=== PATIENT | male | born 1960 | race Caucasian/White ===

== ENCOUNTER 2019-01-20 15:20 | Inpatient (IN) | payer MEDICARE ==
[~2019-01-20] VITALS: Ht 190.5 cm; Wt 86.2 kg
--- OUTSIDE RECORDS SUMMARY | 2019-01-20 15:25 | XMS REPORT ---
Author Author [facility] Address Unknown Phone Unavailable Care Team Providers [employer] Salesperson Name Role Phone Unavailable Unavailable Payers Payer Name Policy Type Policy Number Effective Date Expiration Date Problems This patient has no known problems. Allergies, Adverse Reactions, Alerts Allergy Name Allergy Type Status Severity Reaction(s) Onset Date Inactive Date Treating Clinician Comments No Known Allergies DA Active U 2019-01-15 00:00:00 No Known Allergies DA Active U 2018-12-29 00:00:00 No Known Allergies DA Active U 2018-12-10 00:00:00 No Known Allergies DA Active U 2018-12-09 00:00:00 No Known Allergies DA Active U 2015-08-24 00:00:00 Medications This patient has no known medications. Results Test Description Test Time Test Comments Text Results Atomic Results Result Comments GLUBED 2019-01-17 20:46:00 GLUBED (test code=GLUBED) 138 mg/dL 74-106 Performed by certified quick print operator at [facility] [id number] 08:44:00* Test Item Value Reference Range Comments GLUBED (test code=GLUBED) 118 mg/dL 74-106 Performed [facility] certified quick print operator [facility]~ VANCOMYCIN [id number] 06:29:00* Test Item Value Reference Range Comments VANCOMYCIN TROUGH (test code=VANCT) 11.4 ug/mL 10-20 BASIC METABOLIC [id number] 06:20:00* Test Item Value Reference Range Comments SODIUM (test code=NA) 137 mmol/L 136-145 POTASSIUM (test code=K) 4.0 mmol/L 3.5-5.1 CHLORIDE (test code=CL) 106.0 mmol/L 98-107 CARBON DIOXIDE (test code=CO2) 24.0 mmol/L 21-32 ANION GAP (test code=GAP) 11.0 10-20 GLUCOSE (test code=GLU) 81 mg/dL 74-106 BLOOD UREA NITROGEN (test code=BUN) 6 mg/dL 7-18 GLOMERULAR FILTRATION RATE (test code=GFR) > 60 mL/min >=60 Estimated GFR by using Modified MDRD formula.Chronic kidney disease is defined as either kidney damageor GFR <60 mL/min/1.73 m2 for >3 months. CREATININE (test code=CREAT) 0.40 mg/dL 0.7-1.3 BUN/CREATININE RATIO (test code=BUN/CREA) 15.0 10-20 CALCIUM (test code=CA) 7.9 mg/dL 8.5-10.1 BASIC METABOLIC [id number] 06:17:00* Test Item Value Reference Range Comments SODIUM (test code=NA) 137 mmol/L 136-145 POTASSIUM (test code=K) 4.0 mmol/L 3.5-5.1 CHLORIDE (test code=CL) 106.0 mmol/L 98-107 CARBON DIOXIDE (test code=CO2) mmol/L 21-32 ANION GAP (test code=GAP) 10-20 GLUCOSE (test code=GLU) mg/dL 74-106 BLOOD UREA NITROGEN (test code=BUN) mg/dL 7-18 GLOMERULAR FILTRATION RATE (test code=GFR) mL/min >=60 CREATININE (test code=CREAT) mg/dL 0.7-1.3 BUN/CREATININE RATIO (test code=BUN/CREA) 10-20 CALCIUM (test code=CA) mg/dL 8.5-10.1 CBC W/AUTO [id number] 06:08:00* Test Item Value Reference Range Comments WHITE BLOOD CELL (test code=WBC) 8.0 K/mm3 4.5-12.5 RED BLOOD CELL (test code=RBC) 3.71 mill/mm3 4.0-5.8 HEMOGLOBIN (test code=HGB) 11.0 gram/dL 13.0-17.5 HEMATOCRIT (test code=HCT) 32.9 % 42.0-52.0 MEAN CELL VOLUME (test code=MCV) 88.7 fL 80-98 MEAN CELL HGB (test code=MCH) 29.6 picogram 27.0-33.0 MEAN CELL HGB CONCETRATION (test code=MCHC) 33.4 gram/dL 33.0-36.0 RED CELL DISTRIBUTION WIDTH (test code=RDW) 16.6 % 11.6-16.2 RED CELL DISTRIBUTION WIDTH SD (test code=RDW-SD) 54.0 fL 37.0-51.0 PLATELET COUNT (test code=PLT) 353 K/mm3 150-450 MEAN PLATELET VOLUME (test code=MPV) 9.1 fL 6.7-11.0 NEUTROPHIL % (test code=NT%) 77.3 % 39.0-69.0 IMMATURE GRANULOCYTE % (test code=IG%) 0.4 % 0.0-5.0 LYMPHOCYTE % (test code=LY%) 17.7 % 25.0-55.0 MONOCYTE % (test code=MO%) 2.7 % 0.0-10.0 EOSINOPHIL % (test code=EO%) 1.4 % 0.0-5.0 BASOPHIL % (test code=BA%) 0.5 % 0.0-1.0 NUCLEATED RBC % (test code=NRBC%) 0.0 % 0-0 NEUTROPHIL # (test code=NT#) 6.21 K/mm3 1.8-7.7 IMMATURE GRANULOCYTE # (test code=IG#) 0.03 x10 3/uL 0-0.03 LYMPHOCYTE # (test code=LY#) 1.42 K/mm3 1.0-5.0 MONOCYTE # (test code=MO#) 0.22 K/mm3 0-0.8 EOSINOPHIL # (test code=EO#) 0.11 K/mm3 0.0-0.5 BASOPHIL # (test code=BA#) 0.04 K/mm3 0.0-0.2 NUCLEATED RBC # (test code=NRBC#) 0.00 K/mm3 0.0-0.1 MANUAL DIFF REQUIRED (test code=MDIFF) NO [id number] 20:28:00* Test Item Value Reference Range Comments GLUBED (test code=GLUBED) 105 mg/dL 74-106 Performed by certified quick print operator at [facility] [id number] 16:27:00* Test Item Value Reference Range Comments GLUBED (test code=GLUBED) 110 mg/dL 74-106 Performed by certified quick print operator at [facility] [id number] 11:51:00* Test Item Value Reference Range Comments GLUBED (test code=GLUBED) 112 mg/dL 74-106 Performed by certified quick print operator at [facility] [id number] 08:37:00* Test Item Value Reference Range Comments GLUBED (test code=GLUBED) 104 mg/dL 74-106 Performed by certified quick print operator at [facility] [id number] 21:03:00* Test Item Value Reference Range Comments GLUBED (test code=GLUBED) 103 mg/dL 74-106 Performed by certified quick print operator at [facility] [id number] 18:28:00* Test Item Value Reference Range Comments GLUBED (test code=GLUBED) 170 mg/dL 74-106 Performed by certified quick print operator at [facility] DRUGS OF ABUSE SCREEN [id number] 14:43:00* Test Item Value Reference Range Comments UA PH DIPSTICK (test code=PATRICE) 5.5 5.0-8.0 URN COCAINE (test code=COCAURN) NEGATIVE <300 ng/mL URN CANNABINOIDS (test code=CANNABURN) NEGATIVE <50 ng/mL URN AMPHETAMINE (test code=AMPHETURN) NEGATIVE <1000 ng/mL URN BARBITURATE (test code=BARBITURN) NEGATIVE <200 ng/mL URN BENZODIAZEPINE (test code=BENZOURN) NEGATIVE <200 ng/mL URN OPIATES (test code=OPIATURN) NEGATIVE <300 ng/mL URN PHENCYCLIDINE (PCP) (test code=PHENCURN) NEGATIVE <25 ng/mL URN METHADONE (test code=METHAURN) NEGATIVE <300 ng/mL DRUGS OF ABUSE SCREEN [id number] 14:31:00* Test Item Value Reference Range Comments UA PH DIPSTICK (test code=PATRICE) 5.5 5.0-8.0 URN COCAINE (test code=COCAURN) <300 ng/mL URN CANNABINOIDS (test code=CANNABURN) <50 ng/mL URN AMPHETAMINE (test code=AMPHETURN) <1000 ng/mL URN BARBITURATE (test code=BARBITURN) <200 ng/mL URN BENZODIAZEPINE (test code=BENZOURN) <200 ng/mL URN OPIATES (test code=OPIATURN) <300 ng/mL URN PHENCYCLIDINE (PCP) (test code=PHENCURN) <25 ng/mL URN METHADONE (test code=METHAURN) <300 ng/mL [id number] 11:51:00* Test Item Value Reference Range Comments GLUBED (test code=GLUBED) 93 mg/dL 74-106 Performed by certified quick print operator at [facility] PROCALCITONIN (PCT)2019-01-15 09:50:00* Test Item Value Reference Range Comments PROCALCITONIN (PCT) (test code=PROCAL) 46.77 ng/ml Concentration Interpretation (ng/mL) <0.51 Sepsis is not likely. Local bacterial infection is possible. (LOW RISK for progression to Sepsis) 0.51 - 2.00 Sepsis is possible, but other conditions are known to elevate PCT as well. (MODERATE RISK for progression to Sepsis) > 2.00 Sepsis is likely, unless other causes are known. (HIGH RISK for progression to Severe Sepsis or Septic Shock) 10.00 High likelihood of Severe Sepsis or Septic or higher Shock. *Increased PCT levels may not always be related to systemic bacterial infection.*Low PCT levels do not automatically exclude the presence of bacterial infection.*All results should be interpreted taking into account the patients history. PROTHROMBIN [id number] 09:40:00* Test Item Value Reference Range Comments PROTHROMBIN TIME PATIENT (test code=PTP) 22.1 seconds 9.0-14.0 INTERNATIONAL NORMAL RATIO (test code=INR) 1.9 0.8-1.2 The therapeutic range for oral anticoagulant therapy formost indications is an international normalized ratio (INR)of between 2.0 and 3.0. The recommended therapeutic INRrange for various clinical situations is listed below: Clinical Situation INR range Pulmonary e mbolism treatment (2.0-3.0)Venous thrombosis treatmentVenous thrombosis prophylaxis (high risk surgery)Prevention of systemic embolism from: Acute myocardial infarction Valvular heart disease Atrial fibrillation Mechanical prosthetic heart valves (2.5-3.5) IS PATIENT ON ANTICOAGULANTS? NTHROMBOPLASTIN TIME [id number] 09:40:00* Test Item Value Reference Range Comments THROMBOPLASTIN TIME PARTIAL (test code=PTT) 34.0 seconds 25.0-36.5 IS PATIENT ON ANTICOAGULANTS? NURINALYSIS [id number] 09:38:00* Test Item Value Reference Range Comments UA COLOR (test code=COLU) YELLOW YELLOW UA APPEARANCE (test code=APPU) CLEAR CLEAR UA GLUCOSE DIPSTICK (test code=DGLUU) NEGATIVE mg/dL NEGATIVE UA BILIRUBIN DIPSTICK (test code=BILU) 0.5 (1+) mg/dL NEGATIVE UA KETONE DIPSTICK (test code=KETU) 20 (1+) mg/dL NEGATIVE UA SPECIFIC GRAVITY (test code=SGU) 1.045 1.001-1.035 UA BLOOD DIPSTICK (test code=BEVERLEY) Negative mg/dL NEGATIVE UA PH DIPSTICK (test code=PATRICE) 5.5 5.0-8.0 UA PROTEIN DIPSTICK (test code=PROU) 20 (Trace) mg/dL NEGATIVE UA UROBILINIOGEN DIPSTICK (test code=URO) Normal mg/dL NEGATIVE UA NITRITE DIPSTICK (test code=LESLIE) NEGATIVE NEGATIVE UA LEUKOCYTE ESTERASE W REFLEX (test code=LEUUR) NEGATIVE Susan/uL NEGATIVE UA WBC (test code=WBCU) 0-5 per HPF 0-5 UA RBC (test code=RBCU) 6-10 #/HPF 0-5 UA EPITHELIAL CELLS (test code=EPIU) Few (2-5/hpf) per HPF FEW UA BACTERIA (test code=BACU) FEW #/HPF NONE UA MUCUS (test code=MUCU) FEW #/LPF FEW Urine Source? Clean CatchCBC W/AUTO [id number] 09:34:00* Test Item Value Reference Range Comments WHITE BLOOD CELL (test code=WBC) 9.0 K/mm3 4.5-12.5 RED BLOOD CELL (test code=RBC) 4.01 mill/mm3 4.0-5.8 HEMOGLOBIN (test code=HGB) 11.8 gram/dL 13.0-17.5 HEMATOCRIT (test code=HCT) 36.2 % 42.0-52.0 MEAN CELL VOLUME (test code=MCV) 90.3 fL 80-98 MEAN CELL HGB (test code=MCH) 29.4 picogram 27.0-33.0 MEAN CELL HGB CONCETRATION (test code=MCHC) 32.6 gram/dL 33.0-36.0 RED CELL DISTRIBUTION WIDTH (test code=RDW) 16.4 % 11.6-16.2 RED CELL DISTRIBUTION WIDTH SD (test code=RDW-SD) 55.2 fL 37.0-51.0 PLATELET COUNT (test code=PLT) 384 K/mm3 150-450 MEAN PLATELET VOLUME (test code=MPV) 8.9 fL 6.7-11.0 NEUTROPHIL % (test code=NT%) 78.5 % 39.0-69.0 IMMATURE GRANULOCYTE % (test code=IG%) 1.1 % 0.0-5.0 LYMPHOCYTE % (test code=LY%) 14.3 % 25.0-55.0 MONOCYTE % (test code=MO%) 5.0 % 0.0-10.0 EOSINOPHIL % (test code=EO%) 0.7 % 0.0-5.0 BASOPHIL % (test code=BA%) 0.4 % 0.0-1.0 NUCLEATED RBC % (test code=NRBC%) 0.0 % 0-0 NEUTROPHIL # (test code=NT#) 7.02 K/mm3 1.8-7.7 IMMATURE GRANULOCYTE # (test code=IG#) 0.10 x10 3/uL 0-0.03 LYMPHOCYTE # (test code=LY#) 1.28 K/mm3 1.0-5.0 MONOCYTE # (test code=MO#) 0.45 K/mm3 0-0.8 EOSINOPHIL # (test code=EO#) 0.06 K/mm3 0.0-0.5 BASOPHIL # (test code=BA#) 0.04 K/mm3 0.0-0.2 NUCLEATED RBC # (test code=NRBC#) 0.00 K/mm3 0.0-0.1 MANUAL DIFF REQUIRED (test code=MDIFF) NO BASIC METABOLIC [id number] 09:33:00* Test Item Value Reference Range Comments SODIUM (test code=NA) 131 mmol/L 136-145 POTASSIUM (test code=K) 4.1 mmol/L 3.5-5.1 CHLORIDE (test code=CL) 98.0 mmol/L 98-107 CARBON DIOXIDE (test code=CO2) 24.0 mmol/L 21-32 ANION GAP (test code=GAP) 13.1 10-20 GLUCOSE (test code=GLU) 92 mg/dL 74-106 BLOOD UREA NITROGEN (test code=BUN) 10 mg/dL 7-18 GLOMERULAR FILTRATION RATE (test code=GFR) > 60 mL/min >=60 Estimated GFR by using Modified MDRD formula.Chronic kidney disease is defined as either kidney damageor GFR <60 mL/min/1.73 m2 for >3 months. CREATININE (test code=CREAT) 0.50 mg/dL 0.7-1.3 BUN/CREATININE RATIO (test code=BUN/CREA) 20.0 10-20 CALCIUM (test code=CA) 8.8 mg/dL 8.5-10.1 HEPATIC FUNCTION [id number] 09:33:00* Test Item Value Reference Range Comments TOTAL PROTEIN (test code=PROT) 6.7 gram/dL 6.4-8.2 ALBUMIN (test code=ALB) 2.9 g/dL 3.4-5.0 GLOBULIN (test code=GLOB) 3.8 gram/dL 2.7-4.2 ALBUMIN/GLOBULIN RATIO (test code=A/G) 0.8 0.75-1.50 BILIRUBIN TOTAL (test code=BILT) 0.80 mg/dL 0.0-1.0 BILIRUBIN DIRECT (test code=BILD) 0.42 mg/dL 0.0-0.20 SGOT/AST (test code=AST) 194 IUnit/L 15-37 SGPT/ALT (test code=ALT) 330 IUnit/L 12-78 ALKALINE PHOSPHATASE TOTAL (test code=ALKP) 133 IUnit/L 45-117 Note change in reference range due to change in reagent. [id number] 09:33:00* Test Item Value Reference Range Comments TROPONIN-I (test code=TROPI) <0.015 ng/mL 0-0.045 LACTIC [id number] 09:29:00* Test Item Value Reference Range Comments LACTIC ACID (test code=LACT) 1.0 mmol/L 0.4-1.9 URINALYSIS [id number] 09:27:00* Test Item Value Reference Range Comments UA COLOR (test code=COLU) YELLOW YELLOW UA APPEARANCE (test code=APPU) CLEAR CLEAR UA GLUCOSE DIPSTICK (test code=DGLUU) NEGATIVE mg/dL NEGATIVE UA BILIRUBIN DIPSTICK (test code=BILU) 0.5 (1+) mg/dL NEGATIVE UA KETONE DIPSTICK (test code=KETU) 20 (1+) mg/dL NEGATIVE UA SPECIFIC GRAVITY (test code=SGU) 1.045 1.001-1.035 UA BLOOD DIPSTICK (test code=BEVERLEY) Negative mg/dL NEGATIVE UA PH DIPSTICK (test code=PATRICE) 5.5 5.0-8.0 UA PROTEIN DIPSTICK (test code=PROU) 20 (Trace) mg/dL NEGATIVE UA UROBILINIOGEN DIPSTICK (test code=URO) Normal mg/dL NEGATIVE UA NITRITE DIPSTICK (test code=LESLIE) NEGATIVE NEGATIVE UA LEUKOCYTE ESTERASE W REFLEX (test code=LEUUR) NEGATIVE Susan/uL NEGATIVE UA WBC (test code=WBCU) per HPF 0-5 UA RBC (test code=RBCU) per HPF 0-5 UA EPITHELIAL CELLS (test code=EPIU) per HPF Few UA BACTERIA (test code=BACU) per HPF NONE Urine Source? Clean CatchBASIC METABOLIC [id number] 09:23:00* Test Item Value Reference Range Comments SODIUM (test code=NA) 131 mmol/L 136-145 POTASSIUM (test code=K) 4.1 mmol/L 3.5-5.1 CHLORIDE (test code=CL) 98.0 mmol/L 98-107 CARBON DIOXIDE (test code=CO2) mmol/L 21-32 ANION GAP (test code=GAP) 10-20 GLUCOSE (test code=GLU) mg/dL 74-106 BLOOD UREA NITROGEN (test code=BUN) mg/dL 7-18 GLOMERULAR FILTRATION RATE (test code=GFR) mL/min >=60 CREATININE (test code=CREAT) mg/dL 0.7-1.3 BUN/CREATININE RATIO (test code=BUN/CREA) 10-20 CALCIUM (test code=CA) mg/dL 8.5-10.1 HEPATIC FUNCTION [id number] 09:23:00* Test Item Value Reference Range Comments TOTAL PROTEIN (test code=PROT) gram/dL 6.4-8.2 ALBUMIN (test code=ALB) g/dL 3.4-5.0 GLOBULIN (test code=GLOB) gram/dL 2.7-4.2 ALBUMIN/GLOBULIN RATIO (test code=A/G) 0.75-1.50 BILIRUBIN TOTAL (test code=BILT) mg/dL 0.0-1.0 BILIRUBIN DIRECT (test code=BILD) mg/dL 0.0-0.20 SGOT/AST (test code=AST) IUnit/L 15-37 SGPT/ALT (test code=ALT) IUnit/L 12-78 ALKALINE PHOSPHATASE TOTAL (test code=ALKP) IUnit/L 45-117 [id number] 09:23:00* Test Item Value Reference Range Comments TROPONIN-I (test code=TROPI) ng/mL 0-0.045 POC LACTIC [id number] 09:16:00* Test Item Value Reference Range Comments POC LACTIC ACID (test code=POCLAC) 0.95 MMOL/L 0.4-2.2 - XR FEMUR MIN 2 S [id number] 08:45:00 FAX: Marcy Galloway MD [phone] [place]: [address] St: ADM Name: SHAUNA TABOR [facility] : [birth year] Age/S: 58/M [address] Unit #: [id number] Loc: [place] [address] Phys: Marcy Galloway MD Acct: [id number] Dis Date: Status: ADM IN PHONE #: [phone] Exam Date: 01/15/2019 0807 FAX #: [phone] Reason: pain, infected AKA EXAMS: CPT CODE: [id number] XR FEMUR MIN [address] [place] [address] TECHNIQUE - XR FEMUR MIN 2 VWS RT . COMPARISON: None provided. HISTORY: 58 years Male pain, infected AKA FINDINGS: Right above knee amputation. Stent in the right superficial femoral artery proximally. Postsurgical changes. No fracture. No bony erosive changes. No dislocation. IMPRESSION: Right ab ove knee amputation. Stent in the right superficial femoral artery proxi zachary. Postsurgical changes. No fracture. No bony erosive changes. No di slocation. at 0845 Reported and signed by: Chintan Gonzales M.D. CC: Marcy Galloway MD Technologist: Leslie Ruiz(R); Hallie Buchanan RT(R); ... Trnscrd Date/Time/By: 0 01/15/2019 (0845) : By: [email or web address] Orig Print D/T: S: 01/15/2019 (0848) PAGE 1 Signed Report - XR CHEST 1 [id number] 08:30:00 FAX: Marcy Galloway MD [phone] [place]: [address] St: REG Name: SHAUNA TABOR [facility] : [birth year] 60 Age/S: 58/M [address] Unit #: [id number] Loc: [place] [address] Phys: Marcy Galloway MD Acct: [id number] Dis Date: Status: REG ER PHONE #: [phone] Exam Date: 01/15/2019 0807 FAX #: [phone] Reason: CODE SEPSIS EXAMS: CPT CODE: [id number] XR CHEST 1 V 39051 TECHNIQUE - XR CHEST 1 V . COMPARISON: Chest x-ray 08/28/2015 HISTORY: 58 years Male CODE SEPSIS FINDINGS: Lungs: No nodules. No air space or interstitial lung disease. Lungs are normal in volume. Mediastinum and richmond: No enlargement or other m ass. Cardiovascular structures: No cardiomegaly. No abnormalities in vascular structures. Pleura/CP angles: Clear. No pneum othorax. Bones: Old left rib fractures. Soft tissues : No abnormalities. Tubes and lines: None. Other: N one. IMPRESSION: No acute cardiopulmonary abnormalities. at 0830 Reported and signed by: Chintan Gonzales M.D. CC: Junior Galloway MD Technologist: Leslie Ruiz(R ); Hallie Buchanan RT(R); ... Trnscrd Date/Time/By: 01/15/2019 (0830) : By : [email or web address] Orig Print D/T: S: 01/15/2019 (0520) PAGE 1 Signed Report - XR FEMUR MIN 2 VWS [id number] 15:28:00 FAX: Vj Gupta [phone] [place]: [address] St: REG Name: SHAUNA TABOR [facility] : [birth year] 60 Age/S: 58/M [address] [facility] Unit #: [id number] Loc: [place] [address] Phys: Vj Ayala MD Acct: [id number] Dis Date: Status: REG ER PHONE #: [phone] Exam Date: 12/29/2018 1524 FAX #: [phone] Reason: STUMP PAIN EXAMS: CPT CODE: [id number] XR FEMUR MIN [address] [place] [id number] REASON FOR EXAM: STUMP PAIN EXAM ORDER DATE: 12/29/2018 1:45 PM Ordering MMarshall: Vj Ayala MD PROCEDURE: - XR FEMUR MIN 2 VWS RT FINDINGS: 4 views of the right femur were obtained. The p atient is status post above right knee amputation. The osseous structures are intact without evidence of lytic lesion to suggest osteomyelitis. Surgical arron present within the soft tissue IMPRESSION: Unremarkable right femur Electronically Signed by Nayely Mckenna on at 1528 Reported and signed by: Ang Mckenna M.D. CC: Vj Ayala MD Technologist: Hallie Buchanan RT(R); PAULETTE DENNEY RT(R) Trnscrd Da te/Time/By: 12/29/2018 (1528) : By: MaribelL Orig Print D/T: S: 12/29 (3346) PAGE 1 Signed Report BASIC METABOLIC [id number] 14:57:00* Test Item Value Reference Range Comments SODIUM (test code=NA) 144 mmol/L 136-145 POTASSIUM (test code=K) 4.2 mmol/L 3.5-5.1 CHLORIDE (test code=CL) 112.0 mmol/L 98-107 CARBON DIOXIDE (test code=CO2) 24.0 mmol/L 21-32 ANION GAP (test code=GAP) 12.2 10-20 GLUCOSE (test code=GLU) 80 mg/dL 74-106 BLOOD UREA NITROGEN (test code=BUN) 11 mg/dL 7-18 GLOMERULAR FILTRATION RATE (test code=GFR) > 60 mL/min >=60 Estimated GFR by using Modified MDRD formula.Chronic kidney disease is defined as either kidney damageor GFR <60 mL/min/1.73 m2 for >3 months. CREATININE (test code=CREAT) 0.50 mg/dL 0.7-1.3 BUN/CREATININE RATIO (test code=BUN/CREA) 22.0 10-20 CALCIUM (test code=CA) 9.0 mg/dL 8.5-10.1 BASIC METABOLIC [id number] 14:53:00* Test Item Value Reference Range Comments SODIUM (test code=NA) 144 mmol/L 136-145 POTASSIUM (test code=K) 4.2 mmol/L 3.5-5.1 CHLORIDE (test code=CL) 112.0 mmol/L 98-107 CARBON DIOXIDE (test code=CO2) mmol/L 21-32 ANION GAP (test code=GAP) 10-20 GLUCOSE (test code=GLU) mg/dL 74-106 BLOOD UREA NITROGEN (test code=BUN) mg/dL 7-18 GLOMERULAR FILTRATION RATE (test code=GFR) mL/min >=60 CREATININE (test code=CREAT) mg/dL 0.7-1.3 BUN/CREATININE RATIO (test code=BUN/CREA) 10-20 CALCIUM (test code=CA) 9.0 mg/dL 8.5-10.1 CBC W/AUTO [id number] 14:40:00* Test Item Value Reference Range Comments WHITE BLOOD CELL (test code=WBC) 7.5 K/mm3 4.5-12.5 RED BLOOD CELL (test code=RBC) 3.73 mill/mm3 4.0-5.8 HEMOGLOBIN (test code=HGB) 11.1 gram/dL 13.0-17.5 HEMATOCRIT (test code=HCT) 35.9 % 42.0-52.0 MEAN CELL VOLUME (test code=MCV) 96.2 fL 80-98 MEAN CELL HGB (test code=MCH) 29.8 picogram 27.0-33.0 MEAN CELL HGB CONCETRATION (test code=MCHC) 30.9 gram/dL 33.0-36.0 RED CELL DISTRIBUTION WIDTH (test code=RDW) 18.3 % 11.6-16.2 RED CELL DISTRIBUTION WIDTH SD (test code=RDW-SD) 64.9 fL 37.0-51.0 PLATELET COUNT (test code=PLT) 397 K/mm3 150-450 MEAN PLATELET VOLUME (test code=MPV) 9.1 fL 6.7-11.0 NEUTROPHIL % (test code=NT%) 62.6 % 39.0-69.0 IMMATURE GRANULOCYTE % (test code=IG%) 0.5 % 0.0-5.0 LYMPHOCYTE % (test code=LY%) 29.4 % 25.0-55.0 MONOCYTE % (test code=MO%) 5.3 % 0.0-10.0 EOSINOPHIL % (test code=EO%) 1.3 % 0.0-5.0 BASOPHIL % (test code=BA%) 0.9 % 0.0-1.0 NUCLEATED RBC % (test code=NRBC%) 0.0 % 0-0 NEUTROPHIL # (test code=NT#) 4.71 K/mm3 1.8-7.7 IMMATURE GRANULOCYTE # (test code=IG#) 0.04 x10 3/uL 0-0.03 LYMPHOCYTE # (test code=LY#) 2.22 K/mm3 1.0-5.0 MONOCYTE # (test code=MO#) 0.40 K/mm3 0-0.8 EOSINOPHIL # (test code=EO#) 0.10 K/mm3 0.0-0.5 BASOPHIL # (test code=BA#) 0.07 K/mm3 0.0-0.2 NUCLEATED RBC # (test code=NRBC#) 0.00 K/mm3 0.0-0.1 MANUAL DIFF REQUIRED (test code=MDIFF) NO COMPREHENSIVE METABOLIC [id number] 11:43:00* Test Item Value Reference Range Comments SODIUM (test code=NA) 135 mmol/L 136-145 POTASSIUM (test code=K) 4.5 mmol/L 3.5-5.1 CHLORIDE (test code=CL) 101.0 mmol/L 98-107 CARBON DIOXIDE (test code=CO2) 30.0 mmol/L 21-32 ANION GAP (test code=GAP) 8.5 10-20 GLUCOSE (test code=GLU) 128 mg/dL 74-106 BLOOD UREA NITROGEN (test code=BUN) 14 mg/dL 7-18 GLOMERULAR FILTRATION RATE (test code=GFR) > 60 mL/min >=60 Estimated GFR by using Modified MDRD formula.Chronic kidney disease is defined as either kidney damageor GFR <60 mL/min/1.73 m2 for >3 months. CREATININE (test code=CREAT) 0.60 mg/dL 0.7-1.3 BUN/CREATININE RATIO (test code=BUN/CREA) 23.3 10-20 TOTAL PROTEIN (test code=PROT) 7.2 gram/dL 6.4-8.2 ALBUMIN (test code=ALB) 2.7 g/dL 3.4-5.0 GLOBULIN (test code=GLOB) 4.5 gram/dL 2.7-4.2 ALBUMIN/GLOBULIN RATIO (test code=A/G) 0.6 0.75-1.50 CALCIUM (test code=CA) 9.2 mg/dL 8.5-10.1 BILIRUBIN TOTAL (test code=BILT) 0.20 mg/dL 0.0-1.0 SGOT/AST (test code=AST) 45 IUnit/L 15-37 SGPT/ALT (test code=ALT) 124 IUnit/L 12-78 ALKALINE PHOSPHATASE TOTAL (test code=ALKP) 147 IUnit/L 45-117 Note change in reference range due to change in reagent. COMPREHENSIVE METABOLIC [id number] 11:35:00* Test Item Value Reference Range Comments SODIUM (test code=NA) 135 mmol/L 136-145 POTASSIUM (test code=K) 4.5 mmol/L 3.5-5.1 CHLORIDE (test code=CL) 101.0 mmol/L 98-107 CARBON DIOXIDE (test code=CO2) mmol/L 21-32 ANION GAP (test code=GAP) 10-20 GLUCOSE (test code=GLU) mg/dL 74-106 BLOOD UREA NITROGEN (test code=BUN) mg/dL 7-18 GLOMERULAR FILTRATION RATE (test code=GFR) mL/min >=60 CREATININE (test code=CREAT) mg/dL 0.7-1.3 BUN/CREATININE RATIO (test code=BUN/CREA) 10-20 TOTAL PROTEIN (test code=PROT) gram/dL 6.4-8.2 ALBUMIN (test code=ALB) g/dL 3.4-5.0 GLOBULIN (test code=GLOB) gram/dL 2.7-4.2 ALBUMIN/GLOBULIN RATIO (test code=A/G) 0.75-1.50 CALCIUM (test code=CA) mg/dL 8.5-10.1 BILIRUBIN TOTAL (test code=BILT) mg/dL 0.0-1.0 SGOT/AST (test code=AST) IUnit/L 15-37 SGPT/ALT (test code=ALT) IUnit/L 12-78 ALKALINE PHOSPHATASE TOTAL (test code=ALKP) IUnit/L 45-117 CBC W/AUTO [id number] 10:56:00* Test Item Value Reference Range Comments WHITE BLOOD CELL (test code=WBC) 10.1 K/mm3 4.5-12.5 RED BLOOD CELL (test code=RBC) 3.66 mill/mm3 4.0-5.8 HEMOGLOBIN (test code=HGB) 10.7 gram/dL 13.0-17.5 HEMATOCRIT (test code=HCT) 34.0 % 42.0-52.0 MEAN CELL VOLUME (test code=MCV) 92.9 fL 80-98 MEAN CELL HGB (test code=MCH) 29.2 picogram 27.0-33.0 MEAN CELL HGB CONCETRATION (test code=MCHC) 31.5 gram/dL 33.0-36.0 RED CELL DISTRIBUTION WIDTH (test code=RDW) 17.9 % 11.6-16.2 RED CELL DISTRIBUTION WIDTH SD (test code=RDW-SD) 61.1 fL 37.0-51.0 PLATELET COUNT (test code=PLT) 484 K/mm3 150-450 MEAN PLATELET VOLUME (test code=MPV) 9.0 fL 6.7-11.0 NEUTROPHIL % (test code=NT%) 72.5 % 39.0-69.0 IMMATURE GRANULOCYTE % (test code=IG%) 0.7 % 0.0-5.0 LYMPHOCYTE % (test code=LY%) 15.8 % 25.0-55.0 MONOCYTE % (test code=MO%) 6.5 % 0.0-10.0 EOSINOPHIL % (test code=EO%) 4.1 % 0.0-5.0 BASOPHIL % (test code=BA%) 0.4 % 0.0-1.0 NUCLEATED RBC % (test code=NRBC%) 0.0 % 0-0 NEUTROPHIL # (test code=NT#) 7.35 K/mm3 1.8-7.7 IMMATURE GRANULOCYTE # (test code=IG#) 0.07 x10 3/uL 0-0.03 LYMPHOCYTE # (test code=LY#) 1.60 K/mm3 1.0-5.0 MONOCYTE # (test code=MO#) 0.66 K/mm3 0-0.8 EOSINOPHIL # (test code=EO#) 0.42 K/mm3 0.0-0.5 BASOPHIL # (test code=BA#) 0.04 K/mm3 0.0-0.2 NUCLEATED RBC # (test code=NRBC#) 0.00 K/mm3 0.0-0.1 MANUAL DIFF REQUIRED (test code=MDIFF) NO COMPREHENSIVE METABOLIC [id number] 12:03:00* Test Item Value Reference Range Comments SODIUM (test code=NA) 137 mmol/L 136-145 POTASSIUM (test code=K) 4.2 mmol/L 3.5-5.1 CHLORIDE (test code=CL) 104.0 mmol/L 98-107 CARBON DIOXIDE (test code=CO2) 31.0 mmol/L 21-32 ANION GAP (test code=GAP) 6.2 10-20 GLUCOSE (test code=GLU) 103 mg/dL 74-106 BLOOD UREA NITROGEN (test code=BUN) 8 mg/dL 7-18 GLOMERULAR FILTRATION RATE (test code=GFR) > 60 mL/min >=60 Estimated GFR by using Modified MDRD formula.Chronic kidney disease is defined as either kidney damageor GFR <60 mL/min/1.73 m2 for >3 months. CREATININE (test code=CREAT) 0.50 mg/dL 0.7-1.3 BUN/CREATININE RATIO (test code=BUN/CREA) 16.0 10-20 TOTAL PROTEIN (test code=PROT) 6.4 gram/dL 6.4-8.2 ALBUMIN (test code=ALB) 2.3 g/dL 3.4-5.0 GLOBULIN (test code=GLOB) 4.1 gram/dL 2.7-4.2 ALBUMIN/GLOBULIN RATIO (test code=A/G) 0.6 0.75-1.50 CALCIUM (test code=CA) 8.8 mg/dL 8.5-10.1 BILIRUBIN TOTAL (test code=BILT) 0.20 mg/dL 0.0-1.0 SGOT/AST (test code=AST) 57 IUnit/L 15-37 SGPT/ALT (test code=ALT) 119 IUnit/L 12-78 ALKALINE PHOSPHATASE TOTAL (test code=ALKP) 159 IUnit/L 45-117 Note change in reference range due to change in reagent. CREATINE KINASE (CK)2018-12-17 12:03:00* Test Item Value Reference Range Comments CREATINE KINASE (CK) (test code=CK) 340 IUnit/L 26-208 COMPREHENSIVE METABOLIC [id number] 11:58:00* Test Item Value Reference Range Comments SODIUM (test code=NA) 137 mmol/L 136-145 POTASSIUM (test code=K) 4.2 mmol/L 3.5-5.1 CHLORIDE (test code=CL) 104.0 mmol/L 98-107 CARBON DIOXIDE (test code=CO2) mmol/L 21-32 ANION GAP (test code=GAP) 10-20 GLUCOSE (test code=GLU) mg/dL 74-106 BLOOD UREA NITROGEN (test code=BUN) mg/dL 7-18 GLOMERULAR FILTRATION RATE (test code=GFR) mL/min >=60 CREATININE (test code=CREAT) mg/dL 0.7-1.3 BUN/CREATININE RATIO (test code=BUN/CREA) 10-20 TOTAL PROTEIN (test code=PROT) gram/dL 6.4-8.2 ALBUMIN (test code=ALB) g/dL 3.4-5.0 GLOBULIN (test code=GLOB) gram/dL 2.7-4.2 ALBUMIN/GLOBULIN RATIO (test code=A/G) 0.75-1.50 CALCIUM (test code=CA) mg/dL 8.5-10.1 BILIRUBIN TOTAL (test code=BILT) mg/dL 0.0-1.0 SGOT/AST (test code=AST) IUnit/L 15-37 SGPT/ALT (test code=ALT) IUnit/L 12-78 ALKALINE PHOSPHATASE TOTAL (test code=ALKP) IUnit/L 45-117 CREATINE KINASE (CK)2018-12-17 11:58:00* Test Item Value Reference Range Comments CREATINE KINASE (CK) (test code=CK) IUnit/L 26-208 BASIC METABOLIC [id number] 13:03:00* Test Item Value Reference Range Comments SODIUM (test code=NA) 135 mmol/L 136-145 POTASSIUM (test code=K) 4.0 mmol/L 3.5-5.1 CHLORIDE (test code=CL) 102.0 mmol/L 98-107 CARBON DIOXIDE (test code=CO2) 27.0 mmol/L 21-32 ANION GAP (test code=GAP) 10.0 10-20 GLUCOSE (test code=GLU) 97 mg/dL 74-106 BLOOD UREA NITROGEN (test code=BUN) 8 mg/dL 7-18 GLOMERULAR FILTRATION RATE (test code=GFR) > 60 mL/min >=60 Estimated GFR by using Modified MDRD formula.Chronic kidney disease is defined as either kidney damageor GFR <60 mL/min/1.73 m2 for >3 months. CREATININE (test code=CREAT) 0.60 mg/dL 0.7-1.3 BUN/CREATININE RATIO (test code=BUN/CREA) 13.3 10-20 CALCIUM (test code=CA) 7.9 mg/dL 8.5-10.1 CREATINE KINASE (CK)2018-12-16 13:03:00* Test Item Value Reference Range Comments CREATINE KINASE (CK) (test code=CK) 558 IUnit/L 26-208 [id number] 13:03:00* Test Item Value Reference Range Comments MAGNESIUM (test code=MAG) 2.1 mg/dL 1.8-2.4 - TRC A/V INF THROM [id number] 11:49:00 Name: SHAUNA DUMONT [facility] : 1960 Age/S: 58 / M [address] [facility] Unit #: [id number] Loc: [place] [address] Phys: Fredy Gardner MD Acct: [id number] Dis Date: Status: ADM IN PHONE #: [phone] Exam Date: 12/11/2018 1640 FAX #: [phone] Reason: EXAMS: CPT CODE: [id number] TRC A/V INF THROM SUBS 52771 Fluoro Time: DAP (Gy m2): Air Kerma (mGy): EXAM: Follow-up angiography after thrombolytic therapy with cessation of therapy; INFORMATION: Patient with long history of smoking and right leg ischemia. Presented with a nonviable right foot and underwent angiographic relation, thrombectomy and catheter directed thrombolytic therapy. Clinically, responded to lytic therapy with reperfusion of his thigh, knee and upper half of his calf however, the right foot remained nonviable with purple discoloration and absent motor and sensory function. TECHNIQUE AND FINDINGS: The patient was placed supine on the angiography table and general anesthesia was initiated. The patient's skin in both lungs worse prepped and draped in the usual sterile fashion. Follow-up angiography of the right lower extremity was performed by injecting contrast material into the infusion catheter. The right common and external iliac arteries as well as the right common femoral artery including the stented portions were now widely patent without residual thrombus. The right femoropopliteal bypass graft was also revascularized and without stenosis or residual thrombus. The di stal anastomosis and the popliteal artery were patent. The proximal portions of the tibioperoneal trunk and the anterior tibial artery were op acified but there was no distal runoff consistent with the presence of the reversible distal ischemia. Thrombolytic therapy was discontinued. Low do se heparin infusion was continued and orders were given to remove the vasc ular sheaths in the ICU. No complications. IMPRESSIO N: 1. Thrombectomy and thrombolytic therapy resulted in revascularizatio n of the occluded right iliac arteries as well as of the right f emoropopliteal bypass graft and the right popliteal artery. 2. The proxi mal portions of the right anterior tibial artery and tibioperoneal trunk were also revascularized but there was no distal runoff consistent with the clinical presentation of irreversible distally ischemia. The patient has been evaluated by Dr. Kate, surgery service, for BKA. Fluoroscopy Time: 36 sec CAK : 32.95 mGy DAP : 41396 mGy sq cm PAGE 1 Signed Report (CONTINUED) Name: SHAUNA DUMONT [facility] : 1960 Age/S: 58 / M [address] [facility] Unit #: [id number] Loc: [place] [address] Phys: Fredy Gardner MD Acct: [id number] Dis Date: Status: ADM IN PHONE #: [phone] Exam Date: 12/11/2018 1640 FAX #: [phone] Reason: EXAMS: CPT CODE: [id number] TRC A/V INF THROM SUBS 65701 Fluoro T monica: DAP (Gy m2): Air Kerma (mGy): <Continued> at 1149 Reported and signed by: Fredy Gardner M.D. CC: Asmita Lui MD Technologist: Randolph wheeler Trnscb Date/Time: 12/15/2018 (1447) [email or web address] Orig Print D/T: S: 12/15/2018 (9473) PAGE 2 Signed Report - SP ANGIO EXT UNI [id number] 11:49:00 Name: SHAUNA DUMONT [facility] SP : 1960 Age/S: 58 / M [address] [facility] Unit #: [id number] Loc: [place] [address] Phys: Fredy Gardner MD Acct: [id number] Dis Date: Status: ADM IN PHONE #: [phone] Exam Date: 12/11/2018 1640 FAX #: [phone] Reason: EXAMS: CPT CODE: [id number] [place] [id number] Fluoro Time: 36 DAP (Gy m2): 28242 Air Kerma (mGy): 32.95 EXAM: Follow-up angiography after thrombolytic therapy with cessation of therapy; INFORMATION: Patient with long history of smoking and right leg ischemia. Presented with a nonviable right foot and underwent angiographic relation, thrombectomy and catheter directed thrombolytic therapy. Clinically, responded to lytic therapy with reperfusion of his thigh, knee and upper half of his calf however, the right foot remained nonviable with purple discoloration and absent motor and sensory function. TECHNIQUE AND FINDINGS: The patient was placed supine on the angiography table and general anesthesia was initiated. The patient's skin in both lungs worse prepped and draped in the usual sterile fashion. Follow-up angiography of the right lower extremity was performed by injecting contrast material into the infusion catheter. The right common and external iliac arteries as well as the right common femoral artery including the stented portions were now widely patent without residual thrombus. The right femoropopliteal bypass graft was also revascularized and without stenosis or residual thrombus. The distal anastomosis and the popliteal artery were patent. The proximal portions of the tibioperoneal trunk and the anterior tibial artery were op acified but there was no distal runoff consistent with the presence of the reversible distal ischemia. Thrombolytic therapy was discontinued. Low do se heparin infusion was continued and orders were given to remove the vasc ular sheaths in the ICU. No complications. IMPRESSIO N: 1. Thrombectomy and thrombolytic therapy resulted in revascularizatio n of the occluded right iliac arteries as well as of the right f emoropopliteal bypass graft and the right popliteal artery. 2. The proxi mal portions of the right anterior tibial artery and tibioperoneal trunk were also revascularized but there was no distal runoff consistent with the clinical presentation of irreversible distally ischemia. The patient has been evaluated by Dr. Kate, surgery service, for BKA. Fluoroscopy Time: 36 sec CAK : 32.95 mGy DAP : 35103 mGy sq cm PAGE 1 Signed Report (CONTINUED) Name: SHAUNA DUMONT [facility] : 1960 Age/S: 58 / M [address] [facility] Unit #: [id number] Loc: [place] [address] Phys: Fredy Gardner MD Acct: [id number] Dis Date: Status: ADM IN PHONE #: [phone] Exam Date: 12/11/2018 1640 FAX #: [phone] Reason: EXAMS: CPT CODE: [id number] [place] [id number] Fluoro T monica: 36 DAP (Gy m2): 74992 Air Kerma (mGy): 32.95 <Continued> at 1149 Reported and signed by: Fredy Gardner M.D. CC: Asmita Lui MD Technologist: Randolph wheeler Trnvtb Date/Time: 12/15/2018 (1149) Danilo Orig Print D/T: S: 12/15/2018 (4120) PAGE 2 Signed Report BASIC METABOLIC [id number] 12:38:00* Test Item Value Reference Range Comments SODIUM (test code=NA) 140 mmol/L 136-145 POTASSIUM (test code=K) 3.2 mmol/L 3.5-5.1 CHLORIDE (test code=CL) 107.0 mmol/L 98-107 CARBON DIOXIDE (test code=CO2) 25.0 mmol/L 21-32 ANION GAP (test code=GAP) 11.2 10-20 GLUCOSE (test code=GLU) 138 mg/dL 74-106 BLOOD UREA NITROGEN (test code=BUN) 4 mg/dL 7-18 GLOMERULAR FILTRATION RATE (test code=GFR) > 60 mL/min >=60 Estimated GFR by using Modified MDRD formula.Chronic kidney disease is defined as either kidney damageor GFR <60 mL/min/1.73 m2 for >3 months. CREATININE (test code=CREAT) 0.60 mg/dL 0.7-1.3 BUN/CREATININE RATIO (test code=BUN/CREA) 6.7 10-20 CALCIUM (test code=CA) 8.1 mg/dL 8.5-10.1 [id number] 12:38:00* Test Item Value Reference Range Comments MAGNESIUM (test code=MAG) 1.6 mg/dL 1.8-2.4 CBC W/AUTO [id number] 12:28:00* Test Item Value Reference Range Comments WHITE BLOOD CELL (test code=WBC) 10.0 K/mm3 4.5-12.5 RED BLOOD CELL (test code=RBC) 3.09 mill/mm3 4.0-5.8 HEMOGLOBIN (test code=HGB) 9.4 gram/dL 13.0-17.5 HEMATOCRIT (test code=HCT) 28.1 % 42.0-52.0 MEAN CELL VOLUME (test code=MCV) 90.9 fL 80-98 RESULT VERIFIED BY REPEAT ANALYSIS MEAN CELL HGB (test code=MCH) 30.4 picogram 27.0-33.0 MEAN CELL HGB CONCETRATION (test code=MCHC) 33.5 gram/dL 33.0-36.0 RED CELL DISTRIBUTION WIDTH (test code=RDW) 18.4 % 11.6-16.2 RED CELL DISTRIBUTION WIDTH SD (test code=RDW-SD) 60.4 fL 37.0-51.0 PLATELET COUNT (test code=PLT) 191 K/mm3 150-450 RESULT VERIFIED BY REPEAT ANALYSIS MEAN PLATELET VOLUME (test code=MPV) 10.1 fL 6.7-11.0 NEUTROPHIL % (test code=NT%) 76.1 % 39.0-69.0 IMMATURE GRANULOCYTE % (test code=IG%) 0.3 % 0.0-5.0 LYMPHOCYTE % (test code=LY%) 15.6 % 25.0-55.0 MONOCYTE % (test code=MO%) 7.6 % 0.0-10.0 EOSINOPHIL % (test code=EO%) 0.2 % 0.0-5.0 BASOPHIL % (test code=BA%) 0.2 % 0.0-1.0 NUCLEATED RBC % (test code=NRBC%) 0.0 % 0-0 NEUTROPHIL # (test code=NT#) 7.58 K/mm3 1.8-7.7 IMMATURE GRANULOCYTE # (test code=IG#) 0.03 x10 3/uL 0-0.03 LYMPHOCYTE # (test code=LY#) 1.55 K/mm3 1.0-5.0 MONOCYTE # (test code=MO#) 0.76 K/mm3 0-0.8 EOSINOPHIL # (test code=EO#) 0.02 K/mm3 0.0-0.5 BASOPHIL # (test code=BA#) 0.02 K/mm3 0.0-0.2 NUCLEATED RBC # (test code=NRBC#) 0.00 K/mm3 0.0-0.1 MANUAL DIFF REQUIRED (test code=MDIFF) NO CBC W/AUTO [id number] 08:56:00* Test Item Value Reference Range Comments WHITE BLOOD CELL (test code=WBC) 8.2 K/mm3 4.5-12.5 RED BLOOD CELL (test code=RBC) 3.22 mill/mm3 4.0-5.8 HEMOGLOBIN (test code=HGB) 9.2 gram/dL 13.0-17.5 HEMATOCRIT (test code=HCT) 31.1 % 42.0-52.0 MEAN CELL VOLUME (test code=MCV) 96.6 fL 80-98 MEAN CELL HGB (test code=MCH) 28.6 picogram 27.0-33.0 MEAN CELL HGB CONCETRATION (test code=MCHC) 29.6 gram/dL 33.0-36.0 RED CELL DISTRIBUTION WIDTH (test code=RDW) 18.7 % 11.6-16.2 RED CELL DISTRIBUTION WIDTH SD (test code=RDW-SD) 66.0 fL 37.0-51.0 PLATELET COUNT (test code=PLT) 119 K/mm3 150-450 MEAN PLATELET VOLUME (test code=MPV) 10.8 fL 6.7-11.0 NEUTROPHIL % (test code=NT%) 72.1 % 39.0-69.0 IMMATURE GRANULOCYTE % (test code=IG%) 0.5 % 0.0-5.0 LYMPHOCYTE % (test code=LY%) 19.4 % 25.0-55.0 MONOCYTE % (test code=MO%) 7.0 % 0.0-10.0 EOSINOPHIL % (test code=EO%) 0.9 % 0.0-5.0 BASOPHIL % (test code=BA%) 0.1 % 0.0-1.0 NUCLEATED RBC % (test code=NRBC%) 0.0 % 0-0 NEUTROPHIL # (test code=NT#) 5.89 K/mm3 1.8-7.7 IMMATURE GRANULOCYTE # (test code=IG#) 0.04 x10 3/uL 0-0.03 LYMPHOCYTE # (test code=LY#) 1.58 K/mm3 1.0-5.0 MONOCYTE # (test code=MO#) 0.57 K/mm3 0-0.8 EOSINOPHIL # (test code=EO#) 0.07 K/mm3 0.0-0.5 BASOPHIL # (test code=BA#) 0.01 K/mm3 0.0-0.2 NUCLEATED RBC # (test code=NRBC#) 0.00 K/mm3 0.0-0.1 MANUAL DIFF REQUIRED (test code=MDIFF) NO, ONLY SCAN NEEDED DIFFERENTIAL [id number] 08:56:00* Test Item Value Reference Range Comments STAIN ACCEPTABILITY (test code=STN ACCEPTABLE) STAIN ACCEPTABLE HYPOCHROMIA (test code=HYPO) 1+ POIKILOCYTOSIS (test code=POIK) 1+ ANISOCYTOSIS (test code=ANISO) 1+ CRENATED CELLS (test code=CREN) 1+ PLATELET ESTIMATE (test code=PLTEST) ADEQUATE PLATELET MORPHOLOGY (test code=PLTMORPH) SIZE VARIABLE CBC W/AUTO [id number] 07:41:00* Test Item Value Reference Range Comments WHITE BLOOD CELL (test code=WBC) 8.2 K/mm3 4.5-12.5 RED BLOOD CELL (test code=RBC) 3.22 mill/mm3 4.0-5.8 HEMOGLOBIN (test code=HGB) 9.2 gram/dL 13.0-17.5 HEMATOCRIT (test code=HCT) 31.1 % 42.0-52.0 MEAN CELL VOLUME (test code=MCV) 96.6 fL 80-98 MEAN CELL HGB (test code=MCH) 28.6 picogram 27.0-33.0 MEAN CELL HGB CONCETRATION (test code=MCHC) 29.6 gram/dL 33.0-36.0 RED CELL DISTRIBUTION WIDTH (test code=RDW) 18.7 % 11.6-16.2 RED CELL DISTRIBUTION WIDTH SD (test code=RDW-SD) 66.0 fL 37.0-51.0 PLATELET COUNT (test code=PLT) 119 K/mm3 150-450 MEAN PLATELET VOLUME (test code=MPV) 10.8 fL 6.7-11.0 NEUTROPHIL % (test code=NT%) 72.1 % 39.0-69.0 IMMATURE GRANULOCYTE % (test code=IG%) 0.5 % 0.0-5.0 LYMPHOCYTE % (test code=LY%) 19.4 % 25.0-55.0 MONOCYTE % (test code=MO%) 7.0 % 0.0-10.0 EOSINOPHIL % (test code=EO%) 0.9 % 0.0-5.0 BASOPHIL % (test code=BA%) 0.1 % 0.0-1.0 NUCLEATED RBC % (test code=NRBC%) 0.0 % 0-0 NEUTROPHIL # (test code=NT#) 5.89 K/mm3 1.8-7.7 IMMATURE GRANULOCYTE # (test code=IG#) 0.04 x10 3/uL 0-0.03 LYMPHOCYTE # (test code=LY#) 1.58 K/mm3 1.0-5.0 MONOCYTE # (test code=MO#) 0.57 K/mm3 0-0.8 EOSINOPHIL # (test code=EO#) 0.07 K/mm3 0.0-0.5 BASOPHIL # (test code=BA#) 0.01 K/mm3 0.0-0.2 NUCLEATED RBC # (test code=NRBC#) 0.00 K/mm3 0.0-0.1 MANUAL DIFF REQUIRED (test code=MDIFF) NO, ONLY SCAN NEEDED DIFFERENTIAL [id number] 07:41:00* Test Item Value Reference Range Comments STAIN ACCEPTABILITY (test code=STN ACCEPTABLE) CABOT RINGS (test code=CAB) MORPHOLOGY COMMENT (test code=MOC) PLATELET ESTIMATE (test code=PLTEST) PLATELET MORPHOLOGY (test code=PLTMORPH) CBC W/AUTO [id number] 07:41:00* Test Item Value Reference Range Comments WHITE BLOOD CELL (test code=WBC) 8.2 K/mm3 4.5-12.5 RED BLOOD CELL (test code=RBC) 3.22 mill/mm3 4.0-5.8 HEMOGLOBIN (test code=HGB) 9.2 gram/dL 13.0-17.5 HEMATOCRIT (test code=HCT) 31.1 % 42.0-52.0 MEAN CELL VOLUME (test code=MCV) 96.6 fL 80-98 MEAN CELL HGB (test code=MCH) 28.6 picogram 27.0-33.0 MEAN CELL HGB CONCETRATION (test code=MCHC) 29.6 gram/dL 33.0-36.0 RED CELL DISTRIBUTION WIDTH (test code=RDW) 18.7 % 11.6-16.2 RED CELL DISTRIBUTION WIDTH SD (test code=RDW-SD) 66.0 fL 37.0-51.0 PLATELET COUNT (test code=PLT) 119 K/mm3 150-450 MEAN PLATELET VOLUME (test code=MPV) 10.8 fL 6.7-11.0 NEUTROPHIL % (test code=NT%) 72.1 % 39.0-69.0 IMMATURE GRANULOCYTE % (test code=IG%) 0.5 % 0.0-5.0 LYMPHOCYTE % (test code=LY%) 19.4 % 25.0-55.0 MONOCYTE % (test code=MO%) 7.0 % 0.0-10.0 EOSINOPHIL % (test code=EO%) 0.9 % 0.0-5.0 BASOPHIL % (test code=BA%) 0.1 % 0.0-1.0 NUCLEATED RBC % (test code=NRBC%) 0.0 % 0-0 NEUTROPHIL # (test code=NT#) 5.89 K/mm3 1.8-7.7 IMMATURE GRANULOCYTE # (test code=IG#) 0.04 x10 3/uL 0-0.03 LYMPHOCYTE # (test code=LY#) 1.58 K/mm3 1.0-5.0 MONOCYTE # (test code=MO#) 0.57 K/mm3 0-0.8 EOSINOPHIL # (test code=EO#) 0.07 K/mm3 0.0-0.5 BASOPHIL # (test code=BA#) 0.01 K/mm3 0.0-0.2 NUCLEATED RBC # (test code=NRBC#) 0.00 K/mm3 0.0-0.1 MANUAL DIFF REQUIRED (test code=MDIFF) NO, ONLY SCAN NEEDED DIFFERENTIAL [id number] 07:41:00* Test Item Value Reference Range Comments STAIN ACCEPTABILITY (test code=STN ACCEPTABLE) CABOT RINGS (test code=CAB) MORPHOLOGY COMMENT (test code=MOC) PLATELET ESTIMATE (test code=PLTEST) PLATELET MORPHOLOGY (test code=PLTMORPH) CBC W/AUTO [id number] 07:41:00* Test Item Value Reference Range Comments WHITE BLOOD CELL (test code=WBC) 8.2 K/mm3 4.5-12.5 RED BLOOD CELL (test code=RBC) 3.22 mill/mm3 4.0-5.8 HEMOGLOBIN (test code=HGB) 9.2 gram/dL 13.0-17.5 HEMATOCRIT (test code=HCT) 31.1 % 42.0-52.0 MEAN CELL VOLUME (test code=MCV) 96.6 fL 80-98 MEAN CELL HGB (test code=MCH) 28.6 picogram 27.0-33.0 MEAN CELL HGB CONCETRATION (test code=MCHC) 29.6 gram/dL 33.0-36.0 RED CELL DISTRIBUTION WIDTH (test code=RDW) 18.7 % 11.6-16.2 RED CELL DISTRIBUTION WIDTH SD (test code=RDW-SD) 66.0 fL 37.0-51.0 PLATELET COUNT (test code=PLT) 119 K/mm3 150-450 MEAN PLATELET VOLUME (test code=MPV) 10.8 fL 6.7-11.0 NEUTROPHIL % (test code=NT%) 72.1 % 39.0-69.0 IMMATURE GRANULOCYTE % (test code=IG%) 0.5 % 0.0-5.0 LYMPHOCYTE % (test code=LY%) 19.4 % 25.0-55.0 MONOCYTE % (test code=MO%) 7.0 % 0.0-10.0 EOSINOPHIL % (test code=EO%) 0.9 % 0.0-5.0 BASOPHIL % (test code=BA%) 0.1 % 0.0-1.0 NUCLEATED RBC % (test code=NRBC%) 0.0 % 0-0 NEUTROPHIL # (test code=NT#) 5.89 K/mm3 1.8-7.7 IMMATURE GRANULOCYTE # (test code=IG#) 0.04 x10 3/uL 0-0.03 LYMPHOCYTE # (test code=LY#) 1.58 K/mm3 1.0-5.0 MONOCYTE # (test code=MO#) 0.57 K/mm3 0-0.8 EOSINOPHIL # (test code=EO#) 0.07 K/mm3 0.0-0.5 BASOPHIL # (test code=BA#) 0.01 K/mm3 0.0-0.2 NUCLEATED RBC # (test code=NRBC#) 0.00 K/mm3 0.0-0.1 MANUAL DIFF REQUIRED (test code=MDIFF) NO, ONLY SCAN NEEDED DIFFERENTIAL [id number] 07:41:00* Test Item Value Reference Range Comments STAIN ACCEPTABILITY (test code=STN ACCEPTABLE) MORPHOLOGY COMMENT (test code=MOC) PLATELET ESTIMATE (test code=PLTEST) PLATELET MORPHOLOGY (test code=PLTMORPH) CBC W/AUTO [id number] 07:40:00* Test Item Value Reference Range Comments WHITE BLOOD CELL (test code=WBC) 8.2 K/mm3 4.5-12.5 RED BLOOD CELL (test code=RBC) 3.22 mill/mm3 4.0-5.8 HEMOGLOBIN (test code=HGB) 9.2 gram/dL 13.0-17.5 HEMATOCRIT (test code=HCT) 31.1 % 42.0-52.0 MEAN CELL VOLUME (test code=MCV) 96.6 fL 80-98 MEAN CELL HGB (test code=MCH) 28.6 picogram 27.0-33.0 MEAN CELL HGB CONCETRATION (test code=MCHC) 29.6 gram/dL 33.0-36.0 RED CELL DISTRIBUTION WIDTH (test code=RDW) 18.7 % 11.6-16.2 RED CELL DISTRIBUTION WIDTH SD (test code=RDW-SD) 66.0 fL 37.0-51.0 PLATELET COUNT (test code=PLT) 119 K/mm3 150-450 MEAN PLATELET VOLUME (test code=MPV) 10.8 fL 6.7-11.0 NEUTROPHIL % (test code=NT%) 72.1 % 39.0-69.0 IMMATURE GRANULOCYTE % (test code=IG%) 0.5 % 0.0-5.0 LYMPHOCYTE % (test code=LY%) 19.4 % 25.0-55.0 MONOCYTE % (test code=MO%) 7.0 % 0.0-10.0 EOSINOPHIL % (test code=EO%) 0.9 % 0.0-5.0 BASOPHIL % (test code=BA%) 0.1 % 0.0-1.0 NUCLEATED RBC % (test code=NRBC%) 0.0 % 0-0 NEUTROPHIL # (test code=NT#) 5.89 K/mm3 1.8-7.7 IMMATURE GRANULOCYTE # (test code=IG#) 0.04 x10 3/uL 0-0.03 LYMPHOCYTE # (test code=LY#) 1.58 K/mm3 1.0-5.0 MONOCYTE # (test code=MO#) 0.57 K/mm3 0-0.8 EOSINOPHIL # (test code=EO#) 0.07 K/mm3 0.0-0.5 BASOPHIL # (test code=BA#) 0.01 K/mm3 0.0-0.2 NUCLEATED RBC # (test code=NRBC#) 0.00 K/mm3 0.0-0.1 MANUAL DIFF REQUIRED (test code=MDIFF) NO, ONLY SCAN NEEDED DIFFERENTIAL [id number] 07:40:00* Test Item Value Reference Range Comments STAIN ACCEPTABILITY (test code=STN ACCEPTABLE) CABOT RINGS (test code=CAB) MORPHOLOGY COMMENT (test code=MOC) PLATELET ESTIMATE (test code=PLTEST) PLATELET MORPHOLOGY (test code=PLTMORPH) CREATINE KINASE (CK)2018-12-13 07:39:00* Test Item Value Reference Range Comments CREATINE KINASE (CK) (test code=CK) 6930 IUnit/L 26-208 HEPATIC FUNCTION [id number] 07:24:00* Test Item Value Reference Range Comments TOTAL PROTEIN (test code=PROT) 4.4 gram/dL 6.4-8.2 ALBUMIN (test code=ALB) 2.0 g/dL 3.4-5.0 GLOBULIN (test code=GLOB) 2.4 gram/dL 2.7-4.2 ALBUMIN/GLOBULIN RATIO (test code=A/G) 0.8 0.75-1.50 BILIRUBIN TOTAL (test code=BILT) 0.30 mg/dL 0.0-1.0 BILIRUBIN DIRECT (test code=BILD) 0.11 mg/dL 0.0-0.20 SGOT/AST (test code=AST) 319 IUnit/L 15-37 SGPT/ALT (test code=ALT) 152 IUnit/L 12-78 ALKALINE PHOSPHATASE TOTAL (test code=ALKP) 111 IUnit/L 45-117 Note change in reference range due to change in reagent. BASIC METABOLIC [id number] 07:22:00* Test Item Value Reference Range Comments SODIUM (test code=NA) 139 mmol/L 136-145 POTASSIUM (test code=K) 3.9 mmol/L 3.5-5.1 CHLORIDE (test code=CL) 113.0 mmol/L 98-107 CARBON DIOXIDE (test code=CO2) 21.0 mmol/L 21-32 ANION GAP (test code=GAP) 8.9 10-20 GLUCOSE (test code=GLU) 93 mg/dL 74-106 BLOOD UREA NITROGEN (test code=BUN) 5 mg/dL 7-18 GLOMERULAR FILTRATION RATE (test code=GFR) > 60 mL/min >=60 Estimated GFR by using Modified MDRD formula.Chronic kidney disease is defined as either kidney damageor GFR <60 mL/min/1.73 m2 for >3 months. CREATININE (test code=CREAT) 0.30 mg/dL 0.7-1.3 BUN/CREATININE RATIO (test code=BUN/CREA) 16.7 10-20 CALCIUM (test code=CA) 7.9 mg/dL 8.5-10.1 [id number] 07:22:00* Test Item Value Reference Range Comments PHOSPHORUS (test code=PHOS) 3.0 mg/dL 2.5-4.9 [id number] 07:22:00* Test Item Value Reference Range Comments MAGNESIUM (test code=MAG) 1.6 mg/dL 1.8-2.4 PROTHROMBIN [id number] 07:21:00* Test Item Value Reference Range Comments PROTHROMBIN TIME PATIENT (test code=PTP) 11.5 seconds 9.0-14.0 INTERNATIONAL NORMAL RATIO (test code=INR) 1.0 0.8-1.2 The therapeutic range for oral anticoagulant therapy formost indications is an international normalized ratio (INR)of between 2.0 and 3.0. The recommended therapeutic INRrange for various clinical situations is listed below: Clinical Situation INR range Pulmonary e mbolism treatment (2.0-3.0)Venous thrombosis treatmentVenous thrombosis prophylaxis (high risk surgery)Prevention of systemic embolism from: Acute myocardial infarction Valvular heart disease Atrial fibrillation Mechanical prosthetic heart valves (2.5-3.5) IS PATIENT ON ANTICOAGULANTS? YLIST ANTICOAGULANTS HEPARINSPECIMEN COMMENTS: WAS ON HEPARIN DRIP YESTERDAYCOMMENTS TO WINDER TENDER: GOING FOR SURGERY TODAY THROMBOPLASTIN TIME [id number] 07:21:00* Test Item Value Reference Range Comments THROMBOPLASTIN TIME PARTIAL (test code=PTT) 31.8 seconds 25.0-36.5 IS PATIENT ON ANTICOAGULANTS? YLIST ANTICOAGULANTS HEPARINSPECIMEN COMMENTS: WAS ON HEPARIN DRIP YESTERDAYCOMMENTS TO WINDER TENDER: GOING FOR SURGERY TODAY BASIC METABOLIC [id number] 07:13:00* Test Item Value Reference Range Comments SODIUM (test code=NA) 139 mmol/L 136-145 POTASSIUM (test code=K) 3.9 mmol/L 3.5-5.1 CHLORIDE (test code=CL) 113.0 mmol/L 98-107 CARBON DIOXIDE (test code=CO2) mmol/L 21-32 ANION GAP (test code=GAP) 10-20 GLUCOSE (test code=GLU) mg/dL 74-106 BLOOD UREA NITROGEN (test code=BUN) mg/dL 7-18 GLOMERULAR FILTRATION RATE (test code=GFR) mL/min >=60 CREATININE (test code=CREAT) mg/dL 0.7-1.3 BUN/CREATININE RATIO (test code=BUN/CREA) 10-20 CALCIUM (test code=CA) mg/dL 8.5-10.1 [id number] 07:13:00* Test Item Value Reference Range Comments PHOSPHORUS (test code=PHOS) mg/dL 2.5-4.9 [id number] 07:13:00* Test Item Value Reference Range Comments MAGNESIUM (test code=MAG) mg/dL 1.8-2.4 CREATINE KINASE (CK)2018-12-12 17:14:00* Test Item Value Reference Range Comments CREATINE KINASE (CK) (test code=CK) > 22646 IUnit/L 26-208 CBC W/AUTO [id number] 16:45:00* Test Item Value Reference Range Comments WHITE BLOOD CELL (test code=WBC) 10.2 K/mm3 4.5-12.5 RED BLOOD CELL (test code=RBC) 3.33 mill/mm3 4.0-5.8 HEMOGLOBIN (test code=HGB) 9.7 gram/dL 13.0-17.5 HEMATOCRIT (test code=HCT) 31.2 % 42.0-52.0 MEAN CELL VOLUME (test code=MCV) 93.7 fL 80-98 MEAN CELL HGB (test code=MCH) 29.1 picogram 27.0-33.0 MEAN CELL HGB CONCETRATION (test code=MCHC) 31.1 gram/dL 33.0-36.0 RED CELL DISTRIBUTION WIDTH (test code=RDW) 18.5 % 11.6-16.2 RED CELL DISTRIBUTION WIDTH SD (test code=RDW-SD) 63.5 fL 37.0-51.0 PLATELET COUNT (test code=PLT) 111 K/mm3 150-450 MEAN PLATELET VOLUME (test code=MPV) 11.7 fL 6.7-11.0 NEUTROPHIL % (test code=NT%) 81.2 % 39.0-69.0 IMMATURE GRANULOCYTE % (test code=IG%) 1.2 % 0.0-5.0 LYMPHOCYTE % (test code=LY%) 9.8 % 25.0-55.0 MONOCYTE % (test code=MO%) 7.5 % 0.0-10.0 EOSINOPHIL % (test code=EO%) 0.2 % 0.0-5.0 BASOPHIL % (test code=BA%) 0.1 % 0.0-1.0 NUCLEATED RBC % (test code=NRBC%) 0.0 % 0-0 NEUTROPHIL # (test code=NT#) 8.32 K/mm3 1.8-7.7 IMMATURE GRANULOCYTE # (test code=IG#) 0.12 x10 3/uL 0-0.03 LYMPHOCYTE # (test code=LY#) 1.00 K/mm3 1.0-5.0 MONOCYTE # (test code=MO#) 0.77 K/mm3 0-0.8 EOSINOPHIL # (test code=EO#) 0.02 K/mm3 0.0-0.5 BASOPHIL # (test code=BA#) 0.01 K/mm3 0.0-0.2 NUCLEATED RBC # (test code=NRBC#) 0.00 K/mm3 0.0-0.1 MANUAL DIFF REQUIRED (test code=MDIFF) NO, ONLY SCAN NEEDED DIFFERENTIAL [id number] 16:45:00* Test Item Value Reference Range Comments STAIN ACCEPTABILITY (test code=STN ACCEPTABLE) CABOT RINGS (test code=CAB) MORPHOLOGY COMMENT (test code=MOC) PLATELET ESTIMATE (test code=PLTEST) PLATELET MORPHOLOGY (test code=PLTMORPH) CBC W/AUTO [id number] 16:45:00* Test Item Value Reference Range Comments WHITE BLOOD CELL (test code=WBC) 10.2 K/mm3 4.5-12.5 RED BLOOD CELL (test code=RBC) 3.33 mill/mm3 4.0-5.8 HEMOGLOBIN (test code=HGB) 9.7 gram/dL 13.0-17.5 HEMATOCRIT (test code=HCT) 31.2 % 42.0-52.0 MEAN CELL VOLUME (test code=MCV) 93.7 fL 80-98 MEAN CELL HGB (test code=MCH) 29.1 picogram 27.0-33.0 MEAN CELL HGB CONCETRATION (test code=MCHC) 31.1 gram/dL 33.0-36.0 RED CELL DISTRIBUTION WIDTH (test code=RDW) 18.5 % 11.6-16.2 RED CELL DISTRIBUTION WIDTH SD (test code=RDW-SD) 63.5 fL 37.0-51.0 PLATELET COUNT (test code=PLT) 111 K/mm3 150-450 MEAN PLATELET VOLUME (test code=MPV) 11.7 fL 6.7-11.0 NEUTROPHIL % (test code=NT%) 81.2 % 39.0-69.0 IMMATURE GRANULOCYTE % (test code=IG%) 1.2 % 0.0-5.0 LYMPHOCYTE % (test code=LY%) 9.8 % 25.0-55.0 MONOCYTE % (test code=MO%) 7.5 % 0.0-10.0 EOSINOPHIL % (test code=EO%) 0.2 % 0.0-5.0 BASOPHIL % (test code=BA%) 0.1 % 0.0-1.0 NUCLEATED RBC % (test code=NRBC%) 0.0 % 0-0 NEUTROPHIL # (test code=NT#) 8.32 K/mm3 1.8-7.7 IMMATURE GRANULOCYTE # (test code=IG#) 0.12 x10 3/uL 0-0.03 LYMPHOCYTE # (test code=LY#) 1.00 K/mm3 1.0-5.0 MONOCYTE # (test code=MO#) 0.77 K/mm3 0-0.8 EOSINOPHIL # (test code=EO#) 0.02 K/mm3 0.0-0.5 BASOPHIL # (test code=BA#) 0.01 K/mm3 0.0-0.2 NUCLEATED RBC # (test code=NRBC#) 0.00 K/mm3 0.0-0.1 MANUAL DIFF REQUIRED (test code=MDIFF) NO, ONLY SCAN NEEDED DIFFERENTIAL [id number] 16:45:00* Test Item Value Reference Range Comments STAIN ACCEPTABILITY (test code=STN ACCEPTABLE) MORPHOLOGY COMMENT (test code=MOC) PLATELET ESTIMATE (test code=PLTEST) PLATELET MORPHOLOGY (test code=PLTMORPH) CBC W/AUTO [id number] 16:44:00* Test Item Value Reference Range Comments WHITE BLOOD CELL (test code=WBC) 10.2 K/mm3 4.5-12.5 RED BLOOD CELL (test code=RBC) 3.33 mill/mm3 4.0-5.8 HEMOGLOBIN (test code=HGB) 9.7 gram/dL 13.0-17.5 HEMATOCRIT (test code=HCT) 31.2 % 42.0-52.0 MEAN CELL VOLUME (test code=MCV) 93.7 fL 80-98 MEAN CELL HGB (test code=MCH) 29.1 picogram 27.0-33.0 MEAN CELL HGB CONCETRATION (test code=MCHC) 31.1 gram/dL 33.0-36.0 RED CELL DISTRIBUTION WIDTH (test code=RDW) 18.5 % 11.6-16.2 RED CELL DISTRIBUTION WIDTH SD (test code=RDW-SD) 63.5 fL 37.0-51.0 PLATELET COUNT (test code=PLT) 111 K/mm3 150-450 MEAN PLATELET VOLUME (test code=MPV) 11.7 fL 6.7-11.0 NEUTROPHIL % (test code=NT%) 81.2 % 39.0-69.0 IMMATURE GRANULOCYTE % (test code=IG%) 1.2 % 0.0-5.0 LYMPHOCYTE % (test code=LY%) 9.8 % 25.0-55.0 MONOCYTE % (test code=MO%) 7.5 % 0.0-10.0 EOSINOPHIL % (test code=EO%) 0.2 % 0.0-5.0 BASOPHIL % (test code=BA%) 0.1 % 0.0-1.0 NUCLEATED RBC % (test code=NRBC%) 0.0 % 0-0 NEUTROPHIL # (test code=NT#) 8.32 K/mm3 1.8-7.7 IMMATURE GRANULOCYTE # (test code=IG#) 0.12 x10 3/uL 0-0.03 LYMPHOCYTE # (test code=LY#) 1.00 K/mm3 1.0-5.0 MONOCYTE # (test code=MO#) 0.77 K/mm3 0-0.8 EOSINOPHIL # (test code=EO#) 0.02 K/mm3 0.0-0.5 BASOPHIL # (test code=BA#) 0.01 K/mm3 0.0-0.2 NUCLEATED RBC # (test code=NRBC#) 0.00 K/mm3 0.0-0.1 MANUAL DIFF REQUIRED (test code=MDIFF) NO, ONLY SCAN NEEDED DIFFERENTIAL [id number] 16:44:00* Test Item Value Reference Range Comments STAIN ACCEPTABILITY (test code=STN ACCEPTABLE) CABOT RINGS (test code=CAB) MORPHOLOGY COMMENT (test code=MOC) PLATELET ESTIMATE (test code=PLTEST) PLATELET MORPHOLOGY (test code=PLTMORPH) CBC W/AUTO [id number] 16:44:00* Test Item Value Reference Range Comments WHITE BLOOD CELL (test code=WBC) 10.2 K/mm3 4.5-12.5 RED BLOOD CELL (test code=RBC) 3.33 mill/mm3 4.0-5.8 HEMOGLOBIN (test code=HGB) 9.7 gram/dL 13.0-17.5 HEMATOCRIT (test code=HCT) 31.2 % 42.0-52.0 MEAN CELL VOLUME (test code=MCV) 93.7 fL 80-98 MEAN CELL HGB (test code=MCH) 29.1 picogram 27.0-33.0 MEAN CELL HGB CONCETRATION (test code=MCHC) 31.1 gram/dL 33.0-36.0 RED CELL DISTRIBUTION WIDTH (test code=RDW) 18.5 % 11.6-16.2 RED CELL DISTRIBUTION WIDTH SD (test code=RDW-SD) 63.5 fL 37.0-51.0 PLATELET COUNT (test code=PLT) 111 K/mm3 150-450 MEAN PLATELET VOLUME (test code=MPV) 11.7 fL 6.7-11.0 NEUTROPHIL % (test code=NT%) 81.2 % 39.0-69.0 IMMATURE GRANULOCYTE % (test code=IG%) 1.2 % 0.0-5.0 LYMPHOCYTE % (test code=LY%) 9.8 % 25.0-55.0 MONOCYTE % (test code=MO%) 7.5 % 0.0-10.0 EOSINOPHIL % (test code=EO%) 0.2 % 0.0-5.0 BASOPHIL % (test code=BA%) 0.1 % 0.0-1.0 NUCLEATED RBC % (test code=NRBC%) 0.0 % 0-0 NEUTROPHIL # (test code=NT#) 8.32 K/mm3 1.8-7.7 IMMATURE GRANULOCYTE # (test code=IG#) 0.12 x10 3/uL 0-0.03 LYMPHOCYTE # (test code=LY#) 1.00 K/mm3 1.0-5.0 MONOCYTE # (test code=MO#) 0.77 K/mm3 0-0.8 EOSINOPHIL # (test code=EO#) 0.02 K/mm3 0.0-0.5 BASOPHIL # (test code=BA#) 0.01 K/mm3 0.0-0.2 NUCLEATED RBC # (test code=NRBC#) 0.00 K/mm3 0.0-0.1 MANUAL DIFF REQUIRED (test code=MDIFF) NO, ONLY SCAN NEEDED DIFFERENTIAL [id number] 16:44:00* Test Item Value Reference Range Comments STAIN ACCEPTABILITY (test code=STN ACCEPTABLE) CABOT RINGS (test code=CAB) MORPHOLOGY COMMENT (test code=MOC) PLATELET ESTIMATE (test code=PLTEST) PLATELET MORPHOLOGY (test code=PLTMORPH) COMPREHENSIVE METABOLIC [id number] 16:41:00* Test Item Value Reference Range Comments SODIUM (test code=NA) 138 mmol/L 136-145 POTASSIUM (test code=K) 4.0 mmol/L 3.5-5.1 CHLORIDE (test code=CL) 109.0 mmol/L 98-107 CARBON DIOXIDE (test code=CO2) 24.0 mmol/L 21-32 ANION GAP (test code=GAP) 9.0 10-20 GLUCOSE (test code=GLU) 95 mg/dL 74-106 BLOOD UREA NITROGEN (test code=BUN) 11 mg/dL 7-18 GLOMERULAR FILTRATION RATE (test code=GFR) > 60 mL/min >=60 Estimated GFR by using Modified MDRD formula.Chronic kidney disease is defined as either kidney damageor GFR <60 mL/min/1.73 m2 for >3 months. CREATININE (test code=CREAT) 0.50 mg/dL 0.7-1.3 BUN/CREATININE RATIO (test code=BUN/CREA) 22.0 10-20 TOTAL PROTEIN (test code=PROT) 4.9 gram/dL 6.4-8.2 ALBUMIN (test code=ALB) 2.0 g/dL 3.4-5.0 GLOBULIN (test code=GLOB) 2.9 gram/dL 2.7-4.2 ALBUMIN/GLOBULIN RATIO (test code=A/G) 0.7 0.75-1.50 CALCIUM (test code=CA) 7.2 mg/dL 8.5-10.1 BILIRUBIN TOTAL (test code=BILT) 0.30 mg/dL 0.0-1.0 SGOT/AST (test code=AST) 535 IUnit/L 15-37 SGPT/ALT (test code=ALT) 170 IUnit/L 12-78 ALKALINE PHOSPHATASE TOTAL (test code=ALKP) 96 IUnit/L 45-117 Note change in reference range due to change in reagent. [id number] 16:41:00* Test Item Value Reference Range Comments PHOSPHORUS (test code=PHOS) 2.2 mg/dL 2.5-4.9 [id number] 16:41:00* Test Item Value Reference Range Comments MAGNESIUM (test code=MAG) 1.6 mg/dL 1.8-2.4 COMPREHENSIVE METABOLIC [id number] 16:36:00* Test Item Value Reference Range Comments SODIUM (test code=NA) 138 mmol/L 136-145 POTASSIUM (test code=K) 4.0 mmol/L 3.5-5.1 CHLORIDE (test code=CL) 109.0 mmol/L 98-107 CARBON DIOXIDE (test code=CO2) mmol/L 21-32 ANION GAP (test code=GAP) 10-20 GLUCOSE (test code=GLU) mg/dL 74-106 BLOOD UREA NITROGEN (test code=BUN) mg/dL 7-18 GLOMERULAR FILTRATION RATE (test code=GFR) mL/min >=60 CREATININE (test code=CREAT) mg/dL 0.7-1.3 BUN/CREATININE RATIO (test code=BUN/CREA) 10-20 TOTAL PROTEIN (test code=PROT) gram/dL 6.4-8.2 ALBUMIN (test code=ALB) g/dL 3.4-5.0 GLOBULIN (test code=GLOB) gram/dL 2.7-4.2 ALBUMIN/GLOBULIN RATIO (test code=A/G) 0.75-1.50 CALCIUM (test code=CA) mg/dL 8.5-10.1 BILIRUBIN TOTAL (test code=BILT) mg/dL 0.0-1.0 SGOT/AST (test code=AST) IUnit/L 15-37 SGPT/ALT (test code=ALT) IUnit/L 12-78 ALKALINE PHOSPHATASE TOTAL (test code=ALKP) IUnit/L 45-117 [id number] 16:36:00* Test Item Value Reference Range Comments PHOSPHORUS (test code=PHOS) mg/dL 2.5-4.9 [id number] 16:36:00* Test Item Value Reference Range Comments MAGNESIUM (test code=MAG) mg/dL 1.8-2.4 - SP ANGIO EXT UNI [id number] 14:22:00 Name: SHAUNA DUMONT [facility] : 1960 Age/S: 58 / M [address] [facility] Unit #: [id number] Loc: [place] [address] Phys: Fredy Gardner MD Acct: [id number] Dis Date: Status: ADM IN PHONE #: [phone] Exam Date: 12/10/2018 1500 FAX #: [phone] Reason: EXAMS: CPT CODE: [id number] [place] [id number] Fluoro Time: DAP (Gy m2): Air Kerma (mGy): EXAM: Angiography of the abdominal aorta, the pelvis and the lower extremities; thrombectomy and catheter directed thrombolysis; ultrasound- guided vascular access; INFORMATION: Patient with long history of smoking and alcohol abuse; schizophrenia; he presented to the ER with altered mental status secondary to delirium tremens and with a cold right foot. He has a history of vascular stenting and status post right femoropopliteal bypass. According to the ER physician has been noncompliant with regard to taking anticoagulation. TECHNIQUE AND FINDINGS: Informed consent was obtained from the patient's sister. The patient was placed supine on the angiography table and general anesthesia was initiated. No right femoral pulse was palpable. Both groins were prepped and draped in the usual sterile fashion. Sono graphic imaging showed extensive calcifications of the common femoral stephan timmy bilaterally. On the left side the inferior portion of the common femo ral artery was completely occluded and heavily calcified the more cranial portion was patent. Sonographic images were stored in PACS. Marcaine was administered and using real-time sonographic guidance the proximal po rtion of the left common femoral artery was accessed with a micropuncture system, followed by insertion of an 035 guidewire and a 5 [place] access sh [facility]. A 5 [place] Omni Flush catheter was advanced into the proximal abdominal aorta. Angiography showed a heavily calcified but otherwise pickens nt aorta and patent visceral arteries. The left iliac artery was stented. This vessel as well as the left external iliac artery were patent. T he occluded portion of the left common femoral artery was collateralized w ith opacification of a small caliber patent left SFA which showed atherosc lerotic changes but no significant stenosis. The left profunda femoris art kelli was also patent. Left infrapopliteal vessels could not be completely e valuated because of delayed and insufficient inflow. The rig ht common and external iliac arteries showed stents and these vessels were completely occluded. There was collateral supply to the right profunda fe miguelito artery but these collaterals were of relatively small caliber. A josé miguel nt was seen in the proximal right SFA but this vessel was not collateraliz ed. There was delayed opacification of very small caliber collateral vesse ls in the distal thigh and knee region and there was no opacification of i nfrapopliteal vessels. Attempts were made to cannulate the occluded right common iliac artery PAGE 1 Signed Report (CONTINUED) Name: SHAUNA DUMONT [facility] : 1960 Age/S: 58 / M [address] [facility] Unit #: [id number] Loc: [place] [address] Phys: Fredy Gardner MD Acct: [id number] Dis Date: Status: ADM IN PHONE #: [phone] Exam Date: 12/10/2018 1500 FAX #: [phone] Reason: EXAMS: CPT CODE: [id number] [place] [address] Fluoro Time: DAP (Gy m2): Air Kerma (mGy): <Continued> via the left femoral approach but this was not possible. Therefore Marcaine was administered and the right groin and the right common femoral artery was accessed in retrograde fashion with a micropuncture system, followed by insertion of an 035 guidewire and a 6 [place] access sheath. A guidewire was successfully advanced through the occluded stents and p ositioned in the aorta. Subsequently AngioJet thrombectomy was performed r esulting in thrombus removal in the iliac arteries but this did not restor e flow to the right leg. A thrombolytic infusion catheter was then inserte d and positioned with its tip at the aortic bifurcation the distal portion of the infusion part of the catheter positioned in the right external maximus ac artery. Catheter directed thrombolytic therapy was then initiated infus ing Activase at a rate of 0.5 mg per hour through this infusion catheter. An additional 0.5 mg per hour were infused through the side-arm of the right femoral sheath. Heparin was infused other rate of 400 units per h our through the side-arm of the left femoral sheath. The patient was taken to the intensive care unit in stable condition. IMPRESSIO N: 1. Atherosclerotic changes of the abdominal aorta, which was otherwis e patent. 2. Patent left iliac vessels with short occlusion of t he left common femoral artery and collateral opacification of the left p rofunda and superficial femoral arteries. 3. 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 4. Poor collateralization of the right prof unda femoris artery and insufficient collateral flow to distal vessels w ith no opacification of infrapopliteal arteries on the right. 5. Thrombectomy of right iliac arteries was performed followed by a cathet er directed thrombolytic therapy of the right leg. Fluoroscopy Time: 396 sec CAK : 219.75 mGy DAP : 00768 mGy sq cm at 1422 Reported and si gned by: Fredy Gardner M.D. PAGE 2 Signed Repor t (CONTINUED) Name: SHAUNA DUMONT [facility] : 1960 Age/S: 58 / M [address] Unit #: [id number] Loc: [place] [address] Phys: Fredy Gardner MD Acct: [id number] Dis Date: Status: ADM IN PHONE #: [phone] Exam Date: 12/10/2018 1500 FAX #: [phone] Reason: EXAMS: CPT CODE: [id number] [place] [id number] Fluoro Time: DAP (Gy m2): Air Kerma (mGy): <Continued> CC: Asmita Ornelas MD Technologist: Randolph Sims Trnscb Date/Time: 12/12/2018 (1510) [email or web address] Orig Print D/T: S: 12/12/2018 (5545) PAGE 3 Signed Report - [facility] I [id number] 14:22:00 Name: SHAUNA DUMONT [facility] SP : 1960 Age/S: 58 / M [address] [facility] Unit #: [id number] Loc: [place] [address] Phys: Charles Gardner MD Acct: [id number] Di s Date: Status: ADM IN PHONE #: [phone] Exam Date: 12/10/2018 1500 FAX #: Reason: EXAMS: CPT CODE: [id number] [facility] I INI [address] Fluoro Time: DAP (Gy m2): Air Kerma (mGy): EXAM: Angiography of the abdominal aorta, the pelvis and the lower extremities; thrombectomy and catheter directed thrombolysis; ultrasound-guided vascular access; INFORMAT ION: Patient with long history of smoking and alcohol abuse; schizophrenia ; he presented to the ER with altered mental status secondary to delirium tremens and with a cold right foot. He has a history of vascular stenting and status post right femoropopliteal bypass. According to the ER physicia n has been noncompliant with regard to taking anticoagulation. TECHNIQUE AND FINDINGS: Informed consent was obtained from the patient's sister. The patient was placed supine on the angiography table and general anesthesia was initiated. No right femoral pulse was palpable. Both groins were prepped and draped in the usual sterile fashion. Sono graphic imaging showed extensive calcifications of the common femoral stephan timmy bilaterally. On the left side the inferior portion of the common femo ral artery was completely occluded and heavily calcified the more cranial portion was patent. Sonographic images were stored in PACS. Marcaine was administered and using real-time sonographic guidance the proximal po rtion of the left common femoral artery was accessed with a micropuncture system, followed by insertion of an 035 guidewire and a 5 [place] access sh [facility]. A 5 [place] Omni Flush catheter was advanced into the proximal abdominal aorta. Angiography showed a heavily calcified but otherwise pickens nt aorta and patent visceral arteries. The left iliac artery was stented. This vessel as well as the left external iliac artery were patent. T he occluded portion of the left common femoral artery was collateralized w ith opacification of a small caliber patent left SFA which showed atherosc lerotic changes but no significant stenosis. The left profunda femoris art kelli was also patent. Left infrapopliteal vessels could not be completely e valuated because of delayed and insufficient inflow. The rig ht common and external iliac arteries showed stents and these vessels were completely occluded. There was collateral supply to the right profunda fe miguelito artery but these collaterals were of relatively small caliber. A josé miguel nt was seen in the proximal right SFA but this vessel was not collateraliz ed. There was delayed opacification of very small caliber collateral vesse ls in the distal thigh and knee region and there was no opacification of i nfrapopliteal vessels. Attempts were made to cannulate the occluded right common iliac artery PAGE 1 Signed Report (CONTINUED) Name: SHAUNA DUMONT [facility] : 1960 Age/S: 58 / M [address] [facility] Unit #: [id number] Loc: [place] [address] Phys: Fredy Gardner MD Acct: [id number] Dis Date: Status: ADM IN PHONE #: [phone] Exam Date: 12/10/2018 1500 FAX #: [phone] Reason: EXAMS: CPT CODE: [id number] [facility] INF[facility] S I INI [address]337 Fluoro Time: DAP (Gy m2): Air Kerma (mGy): <Continued> via the left femoral approach but this was not possible. Therefore Marcaine was administered and the right groin and the right common femoral artery was accessed in retrograde fashion with a micropuncture system, followed by insertion of an 035 guidewire and a 6 [place] access sheath. A guidewire was successfully advanced through the occluded stents and p ositioned in the aorta. Subsequently AngioJet thrombectomy was performed r esulting in thrombus removal in the iliac arteries but this did not restor e flow to the right leg. A thrombolytic infusion catheter was then inserte d and positioned with its tip at the aortic bifurcation the distal portion of the infusion part of the catheter positioned in the right external maximus ac artery. Catheter directed thrombolytic therapy was then initiated infus ing Activase at a rate of 0.5 mg per hour through this infusion catheter. An additional 0.5 mg per hour were infused through the side-arm of the right femoral sheath. Heparin was infused other rate of 400 units per h our through the side-arm of the left femoral sheath. The patient was taken to the intensive care unit in stable condition. IMPRESSIO N: 1. Atherosclerotic changes of the abdominal aorta, which was otherwis e patent. 2. Patent left iliac vessels with short occlusion of t he left common femoral artery and collateral opacification of the left p rofunda and superficial femoral arteries. 3. 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 4. Poor collateralization of the right prof unda femoris artery and insufficient collateral flow to distal vessels w ith no opacification of infrapopliteal arteries on the right. 5. Thrombectomy of right iliac arteries was performed followed by a cathet er directed thrombolytic therapy of the right leg. Fluoroscopy Time: 396 sec CAK : 219.75 mGy DAP : 27810 mGy sq cm at 1422 Reported and si gned by: Fredy Gardner M.D. PAGE 2 Signed Repor t (CONTINUED) Name: SHAUNA DUMONT [facility] : 1960 Age/S: 58 / M [address] Unit #: [id number] Loc: [place], [place] [address] Phys: Fredy Gardner MD Acct: [id number] Dis Date: Status: ADM IN PHONE #: [phone] Exam Date: 12/10/2018 1500 FAX #: [phone] Reason: EXAMS: CPT CODE: [id number] [facility] I INI [address]809 Fluoro Time: DAP (Gy m2): Air Kerma (mGy): <Continued> CC: Asmita Ornelas MD Technologist: Randolph Sims Trnvtb Date/Time: 12/12/2018 (1421) Danilo Orig Print D/T: S: 12/12/2018 (1356) PAGE 3 Signed Report - SP AORTOGM ABD [id number] 14:22:00 Name: SHAUNA DUMONT [facility] SP : 1960 Age/S: 58 / M [address] [facility] Unit #: [id number] Loc: [place] [address] Phys: Charles Gardner MD Acct: [id number] Di s Date: Status: ADM IN PHONE #: Exam Date: 12/10/2018 1500 FAX #: Reason: EXAMS: CPT CODE: [id number] SP AORTOGM ABD W/RNF [id number] Fluoro Time: 396 DAP (Gy m2 ): 05118 Air Kerma (mGy): 219.7 EXAM: Angiography of the abdominal aor ta, the pelvis and the lower extremities; thrombectomy and catheter direct ed thrombolysis; ultrasound-guided vascular access; INFORMAT ION: Patient with long history of smoking and alcohol abuse; schizophrenia ; he presented to the ER with altered mental status secondary to delirium tremens and with a cold right foot. He has a history of vascular stenting and status post right femoropopliteal bypass. According to the ER physicia n has been noncompliant with regard to taking anticoagulation. TECHNIQUE AND FINDINGS: Informed consent was obtained from the patient's sister. The patient was placed supine on the angiography table and general anesthesia was initiated. No right femoral pulse was palpable. Both groins were prepped and draped in the usual sterile fashion. Sono graphic imaging showed extensive calcifications of the common femoral stephan timmy bilaterally. On the left side the inferior portion of the common femo ral artery was completely occluded and heavily calcified the more cranial portion was patent. Sonographic images were stored in PACS. Marcaine was administered and using real-time sonographic guidance the proximal po rtion of the left common femoral artery was accessed with a micropuncture system, followed by insertion of an 035 guidewire and a 5 [place] access sh eat. A 5 [place] Omni Flush catheter was advanced into the proximal abdominal aorta. Angiography showed a heavily calcified but otherwise pickens nt aorta and patent visceral arteries. The left iliac artery was stented. This vessel as well as the left external iliac artery were patent. T he occluded portion of the left common femoral artery was collateralized w ith opacification of a small caliber patent left SFA which showed atherosc lerotic changes but no significant stenosis. The left profunda femoris art kelli was also patent. Left infrapopliteal vessels could not be completely e valuated because of delayed and insufficient inflow. The rig ht common and external iliac arteries showed stents and these vessels were completely occluded. There was collateral supply to the right profunda fe miguelito artery but these collaterals were of relatively small caliber. A josé miguel nt was seen in the proximal right SFA but this vessel was not collateraliz ed. There was delayed opacification of very small caliber collateral vesse ls in the distal thigh and knee region and there was no opacification of i nfrapopliteal vessels. Attempts were made to cannulate the occluded right common iliac artery PAGE 1 Signed Report (CONTINUED) Name: SHAUNA DUMONT [facility] : 1960 Age/S: 58 / M [address] [facility] Unit #: [id number] Loc: [place] [address] Phys: Fredy Gardner MD Acct: [id number] Dis Date: Status: ADM IN PHONE #: [phone] Exam Date: 12/10/2018 1500 FAX #: [phone] Reason: EXAMS: CPT CODE: [id number] SP AORTOGM ABD W/RNF 29200 Fluoro Time: 396 DAP (Gy m2): 75307 Air Kerma (mGy): 219.7 <Continued> via the left femoral approach but this was not possible. Therefore Marcaine was administered and the right groin and the right common femoral artery was accessed in retrograde fashion with a micropuncture system, followed by insertion of an 035 guidewire and a 6 [place] access sheath. A guidewire was successfully advanced through the occluded stents and p ositioned in the aorta. Subsequently AngioJet thrombectomy was performed r esulting in thrombus removal in the iliac arteries but this did not restor e flow to the right leg. A thrombolytic infusion catheter was then inserte d and positioned with its tip at the aortic bifurcation the distal portion of the infusion part of the catheter positioned in the right external maximus ac artery. Catheter directed thrombolytic therapy was then initiated infus ing Activase at a rate of 0.5 mg per hour through this infusion catheter. An additional 0.5 mg per hour were infused through the side-arm of the right femoral sheath. Heparin was infused other rate of 400 units per h our through the side-arm of the left femoral sheath. The patient was taken to the intensive care unit in stable condition. IMPRESSIO N: 1. Atherosclerotic changes of the abdominal aorta, which was otherwis e patent. 2. Patent left iliac vessels with short occlusion of t he left common femoral artery and collateral opacification of the left p rofunda and superficial femoral arteries. 3. 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 4. Poor collateralization of the right prof unda femoris artery and insufficient collateral flow to distal vessels w ith no opacification of infrapopliteal arteries on the right. 5. Thrombectomy of right iliac arteries was performed followed by a cathet er directed thrombolytic therapy of the right leg. Fluoroscopy Time: 396 sec CAK : 219.75 mGy DAP : 70462 mGy sq cm at 1422 Reported and si gned by: Fredy Gardner M.D. PAGE 2 Signed Repor t (CONTINUED) Name: SHAUNA DUMONT [facility] SP : 1960 Age/S: 58 / M [address] Unit #: [id number] Loc: [place], [place] [address] Phys: Fredy Gardner MD Acct: [id number] Dis Date: Status: ADM IN PHONE #: [phone] Exam Date: 12/10/2018 1500 FAX #: [phone] Reason: EXAMS: CPT CODE: [id number] SP AORTOGM ABD W/RNF 26646 Fluoro Time: 396 DAP (Gy m2): 25226 Air Kerma (mGy): 219.7 <Continued> CC: Asmita Ornelas MD Technologist: Randolph Sims Trnsc[employer] Date/Time: 12/12/2018 (4090) Danilo Orig Print D/T: S: 12/12/2018 (6514) PAGE 3 Signed Report THROMBOPLASTIN TIME [id number] 13:22:00* Test Item Value Reference Range Comments THROMBOPLASTIN TIME PARTIAL (test code=PTT) 27.1 seconds 25.0-36.5 IS PATIENT ON ANTICOAGULANTS? YLIST ANTICOAGULANTS HEPARINCPK-MB PROFILE 2018-12-12 13:19:00* Test Item Value Reference Range Comments CREATINE KINASE (CK) (test code=CK) 13510 IUnit/L 26-208 CKMB (test code=CKMBT) 276.3 ng/mL 0-6.0 RELATIVE % INDEX (test code=REL%) 1.18 % 0.00-2.50 "If the total CK is elevated, the CKMB Fraction must beinterpreted as a Relative % Index, Normal is less than 2.5%"NOTE: Relative % Index is not valid with a normal total CK. PROTHROMBIN [id number] 11:30:00* Test Item Value Reference Range Comments PROTHROMBIN TIME PATIENT (test code=PTP) 12.2 seconds 9.0-14.0 INTERNATIONAL NORMAL RATIO (test code=INR) 1.0 0.8-1.2 The therapeutic range for oral anticoagulant therapy formost indications is an international normalized ratio (INR)of between 2.0 and 3.0. The recommended therapeutic INRrange for various clinical situations is listed below: Clinical Situation INR range Pulmonary e mbolism treatment (2.0-3.0)Venous thrombosis treatmentVenous thrombosis prophylaxis (high risk surgery)Prevention of systemic embolism from: Acute myocardial infarction Valvular heart disease Atrial fibrillation Mechanical prosthetic heart valves (2.5-3.5) IS PATIENT ON ANTICOAGULANTS? YLIST ANTICOAGULANTS HEPARINCBC W/AUTO DIFF 2018-12-12 08:41:00* Test Item Value Reference Range Comments WHITE BLOOD CELL (test code=WBC) 10.1 K/mm3 4.5-12.5 RED BLOOD CELL (test code=RBC) 3.83 mill/mm3 4.0-5.8 HEMOGLOBIN (test code=HGB) 11.1 gram/dL 13.0-17.5 HEMATOCRIT (test code=HCT) 35.5 % 42.0-52.0 MEAN CELL VOLUME (test code=MCV) 92.7 fL 80-98 MEAN CELL HGB (test code=MCH) 29.0 picogram 27.0-33.0 MEAN CELL HGB CONCETRATION (test code=MCHC) 31.3 gram/dL 33.0-36.0 RED CELL DISTRIBUTION WIDTH (test code=RDW) 18.7 % 11.6-16.2 RED CELL DISTRIBUTION WIDTH SD (test code=RDW-SD) 63.1 fL 37.0-51.0 PLATELET COUNT (test code=PLT) 111 K/mm3 150-450 MEAN PLATELET VOLUME (test code=MPV) 10.1 fL 6.7-11.0 NEUTROPHIL % (test code=NT%) 82.2 % 39.0-69.0 IMMATURE GRANULOCYTE % (test code=IG%) 0.3 % 0.0-5.0 LYMPHOCYTE % (test code=LY%) 10.1 % 25.0-55.0 MONOCYTE % (test code=MO%) 7.2 % 0.0-10.0 EOSINOPHIL % (test code=EO%) 0.1 % 0.0-5.0 BASOPHIL % (test code=BA%) 0.1 % 0.0-1.0 NUCLEATED RBC % (test code=NRBC%) 0.0 % 0-0 NEUTROPHIL # (test code=NT#) 8.28 K/mm3 1.8-7.7 IMMATURE GRANULOCYTE # (test code=IG#) 0.03 x10 3/uL 0-0.03 LYMPHOCYTE # (test code=LY#) 1.02 K/mm3 1.0-5.0 MONOCYTE # (test code=MO#) 0.73 K/mm3 0-0.8 EOSINOPHIL # (test code=EO#) 0.01 K/mm3 0.0-0.5 BASOPHIL # (test code=BA#) 0.01 K/mm3 0.0-0.2 NUCLEATED RBC # (test code=NRBC#) 0.00 K/mm3 0.0-0.1 MANUAL DIFF REQUIRED (test code=MDIFF) NO, ONLY SCAN NEEDED DIFFERENTIAL [id number] 08:41:00* Test Item Value Reference Range Comments STAIN ACCEPTABILITY (test code=STN ACCEPTABLE) STAIN ACCEPTABLE POIKILOCYTOSIS (test code=POIK) 1+ ANISOCYTOSIS (test code=ANISO) 1+ SCHISTOCYTES (test code=RE) 1+ PLATELET ESTIMATE (test code=PLTEST) ADEQUATE PLATELET MORPHOLOGY (test code=PLTMORPH) SIZE VARIABLE COMPREHENSIVE METABOLIC [id number] 08:40:00* Test Item Value Reference Range Comments SODIUM (test code=NA) 137 mmol/L 136-145 POTASSIUM (test code=K) 3.9 mmol/L 3.5-5.1 CHLORIDE (test code=CL) 110.0 mmol/L 98-107 CARBON DIOXIDE (test code=CO2) 22.0 mmol/L 21-32 ANION GAP (test code=GAP) 8.9 10-20 GLUCOSE (test code=GLU) 131 mg/dL 74-106 BLOOD UREA NITROGEN (test code=BUN) 11 mg/dL 7-18 GLOMERULAR FILTRATION RATE (test code=GFR) > 60 mL/min >=60 Estimated GFR by using Modified MDRD formula.Chronic kidney disease is defined as either kidney damageor GFR <60 mL/min/1.73 m2 for >3 months. CREATININE (test code=CREAT) 0.60 mg/dL 0.7-1.3 BUN/CREATININE RATIO (test code=BUN/CREA) 18.3 10-20 TOTAL PROTEIN (test code=PROT) 5.4 gram/dL 6.4-8.2 ALBUMIN (test code=ALB) 2.3 g/dL 3.4-5.0 GLOBULIN (test code=GLOB) 3.1 gram/dL 2.7-4.2 ALBUMIN/GLOBULIN RATIO (test code=A/G) 0.7 0.75-1.50 CALCIUM (test code=CA) 8.1 mg/dL 8.5-10.1 BILIRUBIN TOTAL (test code=BILT) 0.40 mg/dL 0.0-1.0 SGOT/AST (test code=AST) 632 IUnit/L 15-37 SGPT/ALT (test code=ALT) 180 IUnit/L 12-78 ALKALINE PHOSPHATASE TOTAL (test code=ALKP) 103 IUnit/L 45-117 Note change in reference range due to change in reagent. [id number] 08:40:00* Test Item Value Reference Range Comments MAGNESIUM (test code=MAG) 1.9 mg/dL 1.8-2.4 [id number] 08:34:00* Test Item Value Reference Range Comments PHOSPHORUS (test code=PHOS) 2.4 mg/dL 2.5-4.9 COMPREHENSIVE METABOLIC [id number] 08:34:00* Test Item Value Reference Range Comments SODIUM (test code=NA) 137 mmol/L 136-145 POTASSIUM (test code=K) 3.9 mmol/L 3.5-5.1 CHLORIDE (test code=CL) 110.0 mmol/L 98-107 CARBON DIOXIDE (test code=CO2) mmol/L 21-32 ANION GAP (test code=GAP) 10-20 GLUCOSE (test code=GLU) mg/dL 74-106 BLOOD UREA NITROGEN (test code=BUN) mg/dL 7-18 GLOMERULAR FILTRATION RATE (test code=GFR) mL/min >=60 CREATININE (test code=CREAT) mg/dL 0.7-1.3 BUN/CREATININE RATIO (test code=BUN/CREA) 10-20 TOTAL PROTEIN (test code=PROT) gram/dL 6.4-8.2 ALBUMIN (test code=ALB) g/dL 3.4-5.0 GLOBULIN (test code=GLOB) gram/dL 2.7-4.2 ALBUMIN/GLOBULIN RATIO (test code=A/G) 0.75-1.50 CALCIUM (test code=CA) mg/dL 8.5-10.1 BILIRUBIN TOTAL (test code=BILT) mg/dL 0.0-1.0 SGOT/AST (test code=AST) IUnit/L 15-37 SGPT/ALT (test code=ALT) IUnit/L 12-78 ALKALINE PHOSPHATASE TOTAL (test code=ALKP) IUnit/L 45-117 [id number] 08:34:00* Test Item Value Reference Range Comments MAGNESIUM (test code=MAG) mg/dL 1.8-2.4 PROTHROMBIN [id number] 08:23:00* Test Item Value Reference Range Comments PROTHROMBIN TIME PATIENT (test code=PTP) 12.5 seconds 9.0-14.0 INTERNATIONAL NORMAL RATIO (test code=INR) 1.1 0.8-1.2 The therapeutic range for oral anticoagulant therapy formost indications is an international normalized ratio (INR)of between 2.0 and 3.0. The recommended therapeutic INRrange for various clinical situations is listed below: Clinical Situation INR range Pulmonary e mbolism treatment (2.0-3.0)Venous thrombosis treatmentVenous thrombosis prophylaxis (high risk surgery)Prevention of systemic embolism from: Acute myocardial infarction Valvular heart disease Atrial fibrillation Mechanical prosthetic heart valves (2.5-3.5) IS PATIENT ON ANTICOAGULANTS? NTHROMBOPLASTIN TIME [id number] 08:23:00* Test Item Value Reference Range Comments THROMBOPLASTIN TIME PARTIAL (test code=PTT) 29.2 seconds 25.0-36.5 IS PATIENT ON ANTICOAGULANTS? NCBC W/AUTO [id number] 08:10:00* Test Item Value Reference Range Comments WHITE BLOOD CELL (test code=WBC) 10.1 K/mm3 4.5-12.5 RED BLOOD CELL (test code=RBC) 3.83 mill/mm3 4.0-5.8 HEMOGLOBIN (test code=HGB) 11.1 gram/dL 13.0-17.5 HEMATOCRIT (test code=HCT) 35.5 % 42.0-52.0 MEAN CELL VOLUME (test code=MCV) 92.7 fL 80-98 MEAN CELL HGB (test code=MCH) 29.0 picogram 27.0-33.0 MEAN CELL HGB CONCETRATION (test code=MCHC) 31.3 gram/dL 33.0-36.0 RED CELL DISTRIBUTION WIDTH (test code=RDW) 18.7 % 11.6-16.2 RED CELL DISTRIBUTION WIDTH SD (test code=RDW-SD) 63.1 fL 37.0-51.0 PLATELET COUNT (test code=PLT) 111 K/mm3 150-450 MEAN PLATELET VOLUME (test code=MPV) 10.1 fL 6.7-11.0 NEUTROPHIL % (test code=NT%) 82.2 % 39.0-69.0 IMMATURE GRANULOCYTE % (test code=IG%) 0.3 % 0.0-5.0 LYMPHOCYTE % (test code=LY%) 10.1 % 25.0-55.0 MONOCYTE % (test code=MO%) 7.2 % 0.0-10.0 EOSINOPHIL % (test code=EO%) 0.1 % 0.0-5.0 BASOPHIL % (test code=BA%) 0.1 % 0.0-1.0 NUCLEATED RBC % (test code=NRBC%) 0.0 % 0-0 NEUTROPHIL # (test code=NT#) 8.28 K/mm3 1.8-7.7 IMMATURE GRANULOCYTE # (test code=IG#) 0.03 x10 3/uL 0-0.03 LYMPHOCYTE # (test code=LY#) 1.02 K/mm3 1.0-5.0 MONOCYTE # (test code=MO#) 0.73 K/mm3 0-0.8 EOSINOPHIL # (test code=EO#) 0.01 K/mm3 0.0-0.5 BASOPHIL # (test code=BA#) 0.01 K/mm3 0.0-0.2 NUCLEATED RBC # (test code=NRBC#) 0.00 K/mm3 0.0-0.1 MANUAL DIFF REQUIRED (test code=MDIFF) NO, ONLY SCAN NEEDED DIFFERENTIAL [id number] 08:10:00* Test Item Value Reference Range Comments STAIN ACCEPTABILITY (test code=STN ACCEPTABLE) CABOT RINGS (test code=CAB) MORPHOLOGY COMMENT (test code=MOC) PLATELET ESTIMATE (test code=PLTEST) PLATELET MORPHOLOGY (test code=PLTMORPH) CBC W/AUTO [id number] 08:10:00* Test Item Value Reference Range Comments WHITE BLOOD CELL (test code=WBC) 10.1 K/mm3 4.5-12.5 RED BLOOD CELL (test code=RBC) 3.83 mill/mm3 4.0-5.8 HEMOGLOBIN (test code=HGB) 11.1 gram/dL 13.0-17.5 HEMATOCRIT (test code=HCT) 35.5 % 42.0-52.0 MEAN CELL VOLUME (test code=MCV) 92.7 fL 80-98 MEAN CELL HGB (test code=MCH) 29.0 picogram 27.0-33.0 MEAN CELL HGB CONCETRATION (test code=MCHC) 31.3 gram/dL 33.0-36.0 RED CELL DISTRIBUTION WIDTH (test code=RDW) 18.7 % 11.6-16.2 RED CELL DISTRIBUTION WIDTH SD (test code=RDW-SD) 63.1 fL 37.0-51.0 PLATELET COUNT (test code=PLT) 111 K/mm3 150-450 MEAN PLATELET VOLUME (test code=MPV) 10.1 fL 6.7-11.0 NEUTROPHIL % (test code=NT%) 82.2 % 39.0-69.0 IMMATURE GRANULOCYTE % (test code=IG%) 0.3 % 0.0-5.0 LYMPHOCYTE % (test code=LY%) 10.1 % 25.0-55.0 MONOCYTE % (test code=MO%) 7.2 % 0.0-10.0 EOSINOPHIL % (test code=EO%) 0.1 % 0.0-5.0 BASOPHIL % (test code=BA%) 0.1 % 0.0-1.0 NUCLEATED RBC % (test code=NRBC%) 0.0 % 0-0 NEUTROPHIL # (test code=NT#) 8.28 K/mm3 1.8-7.7 IMMATURE GRANULOCYTE # (test code=IG#) 0.03 x10 3/uL 0-0.03 LYMPHOCYTE # (test code=LY#) 1.02 K/mm3 1.0-5.0 MONOCYTE # (test code=MO#) 0.73 K/mm3 0-0.8 EOSINOPHIL # (test code=EO#) 0.01 K/mm3 0.0-0.5 BASOPHIL # (test code=BA#) 0.01 K/mm3 0.0-0.2 NUCLEATED RBC # (test code=NRBC#) 0.00 K/mm3 0.0-0.1 MANUAL DIFF REQUIRED (test code=MDIFF) NO, ONLY SCAN NEEDED DIFFERENTIAL [id number] 08:10:00* Test Item Value Reference Range Comments STAIN ACCEPTABILITY (test code=STN ACCEPTABLE) CABOT RINGS (test code=CAB) MORPHOLOGY COMMENT (test code=MOC) PLATELET ESTIMATE (test code=PLTEST) PLATELET MORPHOLOGY (test code=PLTMORPH) CBC W/AUTO [id number] 08:10:00* Test Item Value Reference Range Comments WHITE BLOOD CELL (test code=WBC) 10.1 K/mm3 4.5-12.5 RED BLOOD CELL (test code=RBC) 3.83 mill/mm3 4.0-5.8 HEMOGLOBIN (test code=HGB) 11.1 gram/dL 13.0-17.5 HEMATOCRIT (test code=HCT) 35.5 % 42.0-52.0 MEAN CELL VOLUME (test code=MCV) 92.7 fL 80-98 MEAN CELL HGB (test code=MCH) 29.0 picogram 27.0-33.0 MEAN CELL HGB CONCETRATION (test code=MCHC) 31.3 gram/dL 33.0-36.0 RED CELL DISTRIBUTION WIDTH (test code=RDW) 18.7 % 11.6-16.2 RED CELL DISTRIBUTION WIDTH SD (test code=RDW-SD) 63.1 fL 37.0-51.0 PLATELET COUNT (test code=PLT) 111 K/mm3 150-450 MEAN PLATELET VOLUME (test code=MPV) 10.1 fL 6.7-11.0 NEUTROPHIL % (test code=NT%) 82.2 % 39.0-69.0 IMMATURE GRANULOCYTE % (test code=IG%) 0.3 % 0.0-5.0 LYMPHOCYTE % (test code=LY%) 10.1 % 25.0-55.0 MONOCYTE % (test code=MO%) 7.2 % 0.0-10.0 EOSINOPHIL % (test code=EO%) 0.1 % 0.0-5.0 BASOPHIL % (test code=BA%) 0.1 % 0.0-1.0 NUCLEATED RBC % (test code=NRBC%) 0.0 % 0-0 NEUTROPHIL # (test code=NT#) 8.28 K/mm3 1.8-7.7 IMMATURE GRANULOCYTE # (test code=IG#) 0.03 x10 3/uL 0-0.03 LYMPHOCYTE # (test code=LY#) 1.02 K/mm3 1.0-5.0 MONOCYTE # (test code=MO#) 0.73 K/mm3 0-0.8 EOSINOPHIL # (test code=EO#) 0.01 K/mm3 0.0-0.5 BASOPHIL # (test code=BA#) 0.01 K/mm3 0.0-0.2 NUCLEATED RBC # (test code=NRBC#) 0.00 K/mm3 0.0-0.1 MANUAL DIFF REQUIRED (test code=MDIFF) NO, ONLY SCAN NEEDED DIFFERENTIAL [id number] 08:10:00* Test Item Value Reference Range Comments STAIN ACCEPTABILITY (test code=STN ACCEPTABLE) MORPHOLOGY COMMENT (test code=MOC) PLATELET ESTIMATE (test code=PLTEST) PLATELET MORPHOLOGY (test code=PLTMORPH) CBC W/AUTO [id number] 08:10:00* Test Item Value Reference Range Comments WHITE BLOOD CELL (test code=WBC) 10.1 K/mm3 4.5-12.5 RED BLOOD CELL (test code=RBC) 3.83 mill/mm3 4.0-5.8 HEMOGLOBIN (test code=HGB) 11.1 gram/dL 13.0-17.5 HEMATOCRIT (test code=HCT) 35.5 % 42.0-52.0 MEAN CELL VOLUME (test code=MCV) 92.7 fL 80-98 MEAN CELL HGB (test code=MCH) 29.0 picogram 27.0-33.0 MEAN CELL HGB CONCETRATION (test code=MCHC) 31.3 gram/dL 33.0-36.0 RED CELL DISTRIBUTION WIDTH (test code=RDW) 18.7 % 11.6-16.2 RED CELL DISTRIBUTION WIDTH SD (test code=RDW-SD) 63.1 fL 37.0-51.0 PLATELET COUNT (test code=PLT) 111 K/mm3 150-450 MEAN PLATELET VOLUME (test code=MPV) 10.1 fL 6.7-11.0 NEUTROPHIL % (test code=NT%) 82.2 % 39.0-69.0 IMMATURE GRANULOCYTE % (test code=IG%) 0.3 % 0.0-5.0 LYMPHOCYTE % (test code=LY%) 10.1 % 25.0-55.0 MONOCYTE % (test code=MO%) 7.2 % 0.0-10.0 EOSINOPHIL % (test code=EO%) 0.1 % 0.0-5.0 BASOPHIL % (test code=BA%) 0.1 % 0.0-1.0 NUCLEATED RBC % (test code=NRBC%) 0.0 % 0-0 NEUTROPHIL # (test code=NT#) 8.28 K/mm3 1.8-7.7 IMMATURE GRANULOCYTE # (test code=IG#) 0.03 x10 3/uL 0-0.03 LYMPHOCYTE # (test code=LY#) 1.02 K/mm3 1.0-5.0 MONOCYTE # (test code=MO#) 0.73 K/mm3 0-0.8 EOSINOPHIL # (test code=EO#) 0.01 K/mm3 0.0-0.5 BASOPHIL # (test code=BA#) 0.01 K/mm3 0.0-0.2 NUCLEATED RBC # (test code=NRBC#) 0.00 K/mm3 0.0-0.1 MANUAL DIFF REQUIRED (test code=MDIFF) NO, ONLY SCAN NEEDED DIFFERENTIAL [id number] 08:10:00* Test Item Value Reference Range Comments STAIN ACCEPTABILITY (test code=STN ACCEPTABLE) CABOT RINGS (test code=CAB) MORPHOLOGY COMMENT (test code=MOC) PLATELET ESTIMATE (test code=PLTEST) PLATELET MORPHOLOGY (test code=PLTMORPH) CBC W/MANUAL [id number] 14:20:00* Test Item Value Reference Range Comments WHITE BLOOD CELL (test code=WBC) 14.6 K/mm3 4.5-12.5 RED BLOOD CELL (test code=RBC) 4.17 mill/mm3 4.0-5.8 HEMOGLOBIN (test code=HGB) 11.7 gram/dL 13.0-17.5 HEMATOCRIT (test code=HCT) 38.5 % 42.0-52.0 MEAN CELL VOLUME (test code=MCV) 92.3 fL 80-98 MEAN CELL HGB (test code=MCH) 28.1 picogram 27.0-33.0 MEAN CELL HGB CONCETRATION (test code=MCHC) 30.4 gram/dL 33.0-36.0 RED CELL DISTRIBUTION WIDTH (test code=RDW) 18.8 % 11.6-16.2 RED CELL DISTRIBUTION WIDTH SD (test code=RDW-SD) 63.7 fL 37.0-51.0 PLATELET COUNT (test code=PLT) 106 K/mm3 150-450 RESULT VERIFIED BY REPEAT ANALYSIS MEAN PLATELET VOLUME (test code=MPV) 9.3 fL 6.7-11.0 IMMATURE GRANULOCYTE % (test code=IG%) 0.5 % 0.0-5.0 NUCLEATED RBC % (test code=NRBC%) 0.0 % 0-0 NEUTROPHIL # (test code=NT#) 13.00 K/mm3 1.8-7.7 IMMATURE GRANULOCYTE # (test code=IG#) 0.08 x10 3/uL 0-0.03 LYMPHOCYTE # (test code=LY#) 0.89 K/mm3 1.0-5.0 MONOCYTE # (test code=MO#) 0.61 K/mm3 0-0.8 EOSINOPHIL # (test code=EO#) 0.00 K/mm3 0.0-0.5 BASOPHIL # (test code=BA#) 0.02 K/mm3 0.0-0.2 NUCLEATED RBC # (test code=NRBC#) 0.00 K/mm3 0.0-0.1 MANUAL DIFF REQUIRED (test code=MDIFF) YES STAIN ACCEPTABILITY (test code=STN ACCEPTABLE) STAIN ACCEPTABLE TOTAL CELLS COUNTED (test code=TCC) 100 #CELLS SEGMENTED NEUTROPHILS (test code=SEG) 86 % 39-69 BAND NEUTROPHIL (test code=BAND) 2 % 0-10 LYMPHOCYTE (test code=LYMPH) 11 % 25-55 MONOCYTE (test code=MON) 1 % 0-10 MORPHOLOGY COMMENT (test code=MOC) NORMAL PLATELET ESTIMATE (test code=PLTEST) DECREASED PLATELET MORPHOLOGY (test code=PLTMORPH) NORMAL COMPREHENSIVE METABOLIC [id number] 12:46:00* Test Item Value Reference Range Comments SODIUM (test code=NA) 140 mmol/L 136-145 POTASSIUM (test code=K) 3.9 mmol/L 3.5-5.1 CHLORIDE (test code=CL) 112.0 mmol/L 98-107 CARBON DIOXIDE (test code=CO2) 20.0 mmol/L 21-32 ANION GAP (test code=GAP) 11.9 10-20 GLUCOSE (test code=GLU) 97 mg/dL 74-106 BLOOD UREA NITROGEN (test code=BUN) 12 mg/dL 7-18 GLOMERULAR FILTRATION RATE (test code=GFR) > 60 mL/min >=60 Estimated GFR by using Modified MDRD formula.Chronic kidney disease is defined as either kidney damageor GFR <60 mL/min/1.73 m2 for >3 months. CREATININE (test code=CREAT) 0.70 mg/dL 0.7-1.3 BUN/CREATININE RATIO (test code=BUN/CREA) 17.1 10-20 TOTAL PROTEIN (test code=PROT) 5.8 gram/dL 6.4-8.2 ALBUMIN (test code=ALB) 2.7 g/dL 3.4-5.0 GLOBULIN (test code=GLOB) 3.1 gram/dL 2.7-4.2 ALBUMIN/GLOBULIN RATIO (test code=A/G) 0.9 0.75-1.50 CALCIUM (test code=CA) 8.0 mg/dL 8.5-10.1 BILIRUBIN TOTAL (test code=BILT) 0.80 mg/dL 0.0-1.0 SGOT/AST (test code=AST) 454 IUnit/L 15-37 SGPT/ALT (test code=ALT) 131 IUnit/L 12-78 ALKALINE PHOSPHATASE TOTAL (test code=ALKP) 138 IUnit/L 45-117 Note change in reference range due to change in reagent. [id number] 12:46:00* Test Item Value Reference Range Comments MAGNESIUM (test code=MAG) 1.8 mg/dL 1.8-2.4 COMPREHENSIVE METABOLIC [id number] 12:41:00* Test Item Value Reference Range Comments SODIUM (test code=NA) 140 mmol/L 136-145 POTASSIUM (test code=K) 3.9 mmol/L 3.5-5.1 CHLORIDE (test code=CL) 112.0 mmol/L 98-107 CARBON DIOXIDE (test code=CO2) mmol/L 21-32 ANION GAP (test code=GAP) 10-20 GLUCOSE (test code=GLU) mg/dL 74-106 BLOOD UREA NITROGEN (test code=BUN) mg/dL 7-18 GLOMERULAR FILTRATION RATE (test code=GFR) mL/min >=60 CREATININE (test code=CREAT) mg/dL 0.7-1.3 BUN/CREATININE RATIO (test code=BUN/CREA) 10-20 TOTAL PROTEIN (test code=PROT) gram/dL 6.4-8.2 ALBUMIN (test code=ALB) g/dL 3.4-5.0 GLOBULIN (test code=GLOB) gram/dL 2.7-4.2 ALBUMIN/GLOBULIN RATIO (test code=A/G) 0.75-1.50 CALCIUM (test code=CA) mg/dL 8.5-10.1 BILIRUBIN TOTAL (test code=BILT) mg/dL 0.0-1.0 SGOT/AST (test code=AST) IUnit/L 15-37 SGPT/ALT (test code=ALT) IUnit/L 12-78 ALKALINE PHOSPHATASE TOTAL (test code=ALKP) IUnit/L 45-117 [id number] 12:41:00* Test Item Value Reference Range Comments MAGNESIUM (test code=MAG) mg/dL 1.8-2.4 CBC W/MANUAL [id number] 12:35:00* Test Item Value Reference Range Comments WHITE BLOOD CELL (test code=WBC) 14.6 K/mm3 4.5-12.5 RED BLOOD CELL (test code=RBC) 4.17 mill/mm3 4.0-5.8 HEMOGLOBIN (test code=HGB) 11.7 gram/dL 13.0-17.5 HEMATOCRIT (test code=HCT) 38.5 % 42.0-52.0 MEAN CELL VOLUME (test code=MCV) 92.3 fL 80-98 MEAN CELL HGB (test code=MCH) 28.1 picogram 27.0-33.0 MEAN CELL HGB CONCETRATION (test code=MCHC) 30.4 gram/dL 33.0-36.0 RED CELL DISTRIBUTION WIDTH (test code=RDW) 18.8 % 11.6-16.2 RED CELL DISTRIBUTION WIDTH SD (test code=RDW-SD) 63.7 fL 37.0-51.0 PLATELET COUNT (test code=PLT) 106 K/mm3 150-450 RESULT VERIFIED BY REPEAT ANALYSIS MEAN PLATELET VOLUME (test code=MPV) 9.3 fL 6.7-11.0 IMMATURE GRANULOCYTE % (test code=IG%) 0.5 % 0.0-5.0 NUCLEATED RBC % (test code=NRBC%) 0.0 % 0-0 NEUTROPHIL # (test code=NT#) 13.00 K/mm3 1.8-7.7 IMMATURE GRANULOCYTE # (test code=IG#) 0.08 x10 3/uL 0-0.03 LYMPHOCYTE # (test code=LY#) 0.89 K/mm3 1.0-5.0 MONOCYTE # (test code=MO#) 0.61 K/mm3 0-0.8 EOSINOPHIL # (test code=EO#) 0.00 K/mm3 0.0-0.5 BASOPHIL # (test code=BA#) 0.02 K/mm3 0.0-0.2 NUCLEATED RBC # (test code=NRBC#) 0.00 K/mm3 0.0-0.1 MANUAL DIFF REQUIRED (test code=MDIFF) YES STAIN ACCEPTABILITY (test code=STN ACCEPTABLE) TOTAL CELLS COUNTED (test code=TCC) #CELLS SEGMENTED NEUTROPHILS (test code=SEG) % 39-69 LYMPHOCYTE (test code=LYMPH) % 25-55 MONOCYTE (test code=MON) % 0-10 EOSINOPHIL (test code=EOS) % 0.0-5.0 CABOT RINGS (test code=CAB) MORPHOLOGY COMMENT (test code=MOC) PLATELET ESTIMATE (test code=PLTEST) PLATELET MORPHOLOGY (test code=PLTMORPH) CBC W/MANUAL [id number] 12:35:00* Test Item Value Reference Range Comments WHITE BLOOD CELL (test code=WBC) 14.6 K/mm3 4.5-12.5 RED BLOOD CELL (test code=RBC) 4.17 mill/mm3 4.0-5.8 HEMOGLOBIN (test code=HGB) 11.7 gram/dL 13.0-17.5 HEMATOCRIT (test code=HCT) 38.5 % 42.0-52.0 MEAN CELL VOLUME (test code=MCV) 92.3 fL 80-98 MEAN CELL HGB (test code=MCH) 28.1 picogram 27.0-33.0 MEAN CELL HGB CONCETRATION (test code=MCHC) 30.4 gram/dL 33.0-36.0 RED CELL DISTRIBUTION WIDTH (test code=RDW) 18.8 % 11.6-16.2 RED CELL DISTRIBUTION WIDTH SD (test code=RDW-SD) 63.7 fL 37.0-51.0 PLATELET COUNT (test code=PLT) 106 K/mm3 150-450 RESULT VERIFIED BY REPEAT ANALYSIS MEAN PLATELET VOLUME (test code=MPV) 9.3 fL 6.7-11.0 IMMATURE GRANULOCYTE % (test code=IG%) 0.5 % 0.0-5.0 NUCLEATED RBC % (test code=NRBC%) 0.0 % 0-0 NEUTROPHIL # (test code=NT#) 13.00 K/mm3 1.8-7.7 IMMATURE GRANULOCYTE # (test code=IG#) 0.08 x10 3/uL 0-0.03 LYMPHOCYTE # (test code=LY#) 0.89 K/mm3 1.0-5.0 MONOCYTE # (test code=MO#) 0.61 K/mm3 0-0.8 EOSINOPHIL # (test code=EO#) 0.00 K/mm3 0.0-0.5 BASOPHIL # (test code=BA#) 0.02 K/mm3 0.0-0.2 NUCLEATED RBC # (test code=NRBC#) 0.00 K/mm3 0.0-0.1 MANUAL DIFF REQUIRED (test code=MDIFF) YES STAIN ACCEPTABILITY (test code=STN ACCEPTABLE) TOTAL CELLS COUNTED (test code=TCC) #CELLS SEGMENTED NEUTROPHILS (test code=SEG) % 39-69 LYMPHOCYTE (test code=LYMPH) % 25-55 MONOCYTE (test code=MON) % 0-10 EOSINOPHIL (test code=EOS) % 0.0-5.0 CABOT RINGS (test code=CAB) MORPHOLOGY COMMENT (test code=MOC) PLATELET ESTIMATE (test code=PLTEST) PLATELET MORPHOLOGY (test code=PLTMORPH) CBC W/MANUAL [id number] 12:35:00* Test Item Value Reference Range Comments WHITE BLOOD CELL (test code=WBC) 14.6 K/mm3 4.5-12.5 RED BLOOD CELL (test code=RBC) 4.17 mill/mm3 4.0-5.8 HEMOGLOBIN (test code=HGB) 11.7 gram/dL 13.0-17.5 HEMATOCRIT (test code=HCT) 38.5 % 42.0-52.0 MEAN CELL VOLUME (test code=MCV) 92.3 fL 80-98 MEAN CELL HGB (test code=MCH) 28.1 picogram 27.0-33.0 MEAN CELL HGB CONCETRATION (test code=MCHC) 30.4 gram/dL 33.0-36.0 RED CELL DISTRIBUTION WIDTH (test code=RDW) 18.8 % 11.6-16.2 RED CELL DISTRIBUTION WIDTH SD (test code=RDW-SD) 63.7 fL 37.0-51.0 PLATELET COUNT (test code=PLT) 106 K/mm3 150-450 RESULT VERIFIED BY REPEAT ANALYSIS MEAN PLATELET VOLUME (test code=MPV) 9.3 fL 6.7-11.0 IMMATURE GRANULOCYTE % (test code=IG%) 0.5 % 0.0-5.0 NUCLEATED RBC % (test code=NRBC%) 0.0 % 0-0 NEUTROPHIL # (test code=NT#) 13.00 K/mm3 1.8-7.7 IMMATURE GRANULOCYTE # (test code=IG#) 0.08 x10 3/uL 0-0.03 LYMPHOCYTE # (test code=LY#) 0.89 K/mm3 1.0-5.0 MONOCYTE # (test code=MO#) 0.61 K/mm3 0-0.8 EOSINOPHIL # (test code=EO#) 0.00 K/mm3 0.0-0.5 BASOPHIL # (test code=BA#) 0.02 K/mm3 0.0-0.2 NUCLEATED RBC # (test code=NRBC#) 0.00 K/mm3 0.0-0.1 MANUAL DIFF REQUIRED (test code=MDIFF) YES STAIN ACCEPTABILITY (test code=STN ACCEPTABLE) TOTAL CELLS COUNTED (test code=TCC) #CELLS SEGMENTED NEUTROPHILS (test code=SEG) % 39-69 LYMPHOCYTE (test code=LYMPH) % 25-55 MONOCYTE (test code=MON) % 0-10 EOSINOPHIL (test code=EOS) % 0.0-5.0 MORPHOLOGY COMMENT (test code=MOC) PLATELET ESTIMATE (test code=PLTEST) PLATELET MORPHOLOGY (test code=PLTMORPH) CBC W/MANUAL [id number] 12:35:00* Test Item Value Reference Range Comments WHITE BLOOD CELL (test code=WBC) 14.6 K/mm3 4.5-12.5 RED BLOOD CELL (test code=RBC) 4.17 mill/mm3 4.0-5.8 HEMOGLOBIN (test code=HGB) 11.7 gram/dL 13.0-17.5 HEMATOCRIT (test code=HCT) 38.5 % 42.0-52.0 MEAN CELL VOLUME (test code=MCV) 92.3 fL 80-98 MEAN CELL HGB (test code=MCH) 28.1 picogram 27.0-33.0 MEAN CELL HGB CONCETRATION (test code=MCHC) 30.4 gram/dL 33.0-36.0 RED CELL DISTRIBUTION WIDTH (test code=RDW) 18.8 % 11.6-16.2 RED CELL DISTRIBUTION WIDTH SD (test code=RDW-SD) 63.7 fL 37.0-51.0 PLATELET COUNT (test code=PLT) 106 K/mm3 150-450 RESULT VERIFIED BY REPEAT ANALYSIS MEAN PLATELET VOLUME (test code=MPV) 9.3 fL 6.7-11.0 IMMATURE GRANULOCYTE % (test code=IG%) 0.5 % 0.0-5.0 NUCLEATED RBC % (test code=NRBC%) 0.0 % 0-0 NEUTROPHIL # (test code=NT#) 13.00 K/mm3 1.8-7.7 IMMATURE GRANULOCYTE # (test code=IG#) 0.08 x10 3/uL 0-0.03 LYMPHOCYTE # (test code=LY#) 0.89 K/mm3 1.0-5.0 MONOCYTE # (test code=MO#) 0.61 K/mm3 0-0.8 EOSINOPHIL # (test code=EO#) 0.00 K/mm3 0.0-0.5 BASOPHIL # (test code=BA#) 0.02 K/mm3 0.0-0.2 NUCLEATED RBC # (test code=NRBC#) 0.00 K/mm3 0.0-0.1 MANUAL DIFF REQUIRED (test code=MDIFF) YES STAIN ACCEPTABILITY (test code=STN ACCEPTABLE) TOTAL CELLS COUNTED (test code=TCC) #CELLS SEGMENTED NEUTROPHILS (test code=SEG) % 39-69 LYMPHOCYTE (test code=LYMPH) % 25-55 MONOCYTE (test code=MON) % 0-10 MORPHOLOGY COMMENT (test code=MOC) PLATELET ESTIMATE (test code=PLTEST) PLATELET MORPHOLOGY (test code=PLTMORPH) CBC W/MANUAL [id number] 12:35:00* Test Item Value Reference Range Comments WHITE BLOOD CELL (test code=WBC) 14.6 K/mm3 4.5-12.5 RED BLOOD CELL (test code=RBC) 4.17 mill/mm3 4.0-5.8 HEMOGLOBIN (test code=HGB) 11.7 gram/dL 13.0-17.5 HEMATOCRIT (test code=HCT) 38.5 % 42.0-52.0 MEAN CELL VOLUME (test code=MCV) 92.3 fL 80-98 MEAN CELL HGB (test code=MCH) 28.1 picogram 27.0-33.0 MEAN CELL HGB CONCETRATION (test code=MCHC) 30.4 gram/dL 33.0-36.0 RED CELL DISTRIBUTION WIDTH (test code=RDW) 18.8 % 11.6-16.2 RED CELL DISTRIBUTION WIDTH SD (test code=RDW-SD) 63.7 fL 37.0-51.0 PLATELET COUNT (test code=PLT) 106 K/mm3 150-450 RESULT VERIFIED BY REPEAT ANALYSIS MEAN PLATELET VOLUME (test code=MPV) 9.3 fL 6.7-11.0 IMMATURE GRANULOCYTE % (test code=IG%) 0.5 % 0.0-5.0 NUCLEATED RBC % (test code=NRBC%) 0.0 % 0-0 NEUTROPHIL # (test code=NT#) 13.00 K/mm3 1.8-7.7 IMMATURE GRANULOCYTE # (test code=IG#) 0.08 x10 3/uL 0-0.03 LYMPHOCYTE # (test code=LY#) 0.89 K/mm3 1.0-5.0 MONOCYTE # (test code=MO#) 0.61 K/mm3 0-0.8 EOSINOPHIL # (test code=EO#) 0.00 K/mm3 0.0-0.5 BASOPHIL # (test code=BA#) 0.02 K/mm3 0.0-0.2 NUCLEATED RBC # (test code=NRBC#) 0.00 K/mm3 0.0-0.1 MANUAL DIFF REQUIRED (test code=MDIFF) YES STAIN ACCEPTABILITY (test code=STN ACCEPTABLE) TOTAL CELLS COUNTED (test code=TCC) #CELLS SEGMENTED NEUTROPHILS (test code=SEG) % 39-69 LYMPHOCYTE (test code=LYMPH) % 25-55 MONOCYTE (test code=MON) % 0-10 EOSINOPHIL (test code=EOS) % 0.0-5.0 CABOT RINGS (test code=CAB) MORPHOLOGY COMMENT (test code=MOC) PLATELET ESTIMATE (test code=PLTEST) PLATELET MORPHOLOGY (test code=PLTMORPH) THROMBOPLASTIN TIME [id number] 11:54:00* Test Item Value Reference Range Comments THROMBOPLASTIN TIME PARTIAL (test code=PTT) 62.9 seconds 25.0-36.5 IS PATIENT ON ANTICOAGULANTS? YLIST ANTICOAGULANTS HEPARINSPECIMEN COMMENTS: IN LABCOMMENTS TO WINDER TENDER: BLOOD IN LABPROTHROMBIN [id number] 03:17:00 * Test Item Value Reference Range Comments PROTHROMBIN TIME PATIENT (test code=PTP) 11.6 seconds 9.0-14.0 INTERNATIONAL NORMAL RATIO (test code=INR) 1.0 0.8-1.2 The therapeutic range for oral anticoagulant therapy formost indications is an international normalized ratio (INR)of between 2.0 and 3.0. The recommended therapeutic INRrange for various clinical situations is listed below: Clinical Situation INR range Pulmonary e mbolism treatment (2.0-3.0)Venous thrombosis treatmentVenous thrombosis prophylaxis (high risk surgery)Prevention of systemic embolism from: Acute myocardial infarction Valvular heart disease Atrial fibrillation Mechanical prosthetic heart valves (2.5-3.5) IS PATIENT ON ANTICOAGULANTS? NTHROMBOPLASTIN TIME [id number] 03:17:00* Test Item Value Reference Range Comments THROMBOPLASTIN TIME PARTIAL (test code=PTT) 31.7 seconds 25.0-36.5 IS PATIENT ON ANTICOAGULANTS? [id number] 03:05:00* Test Item Value Reference Range Comments HEMATOCRIT (test code=HCT) 39.3 % 42.0-52.0 PLATELET [id number] 03:05:00* Test Item Value Reference Range Comments PLATELET COUNT (test code=PLT) 205 K/mm3 150-450 - CTA LOW EXTREMITY [id number] 01:10:00 Name: SHAUNA DUMONT [facility] : 1960 Age/S: 58 / M [address] [facility]: [id number] Loc: [place] [address] Phys: Luis Carlos Castellon MD Acct: [id number] Dis Date: Status: REG ER PHONE #: [phone] Exam Date: 12/09/20182250 FAX #: [phone] Reason: Concern for dec arterial flow EXAMS: CPT CODE: [id number] [place] [id number] HISTORY: Male, 58 years of age with PAD, decreased arterial flow to right leg Location code: R16 EXAM: CT ANGIOGRAPHY OF THE ABDOMEN, PELVIS, AND LOWER EXTREMITIES COMPARISON: Previous CT angiography of abdomen, pelvis, enlarged ovaries performed 09/07/2015 TECHNIQUE: Helical axial images were obtained from mid pelvis at the level of right external iliac artery to the right foot with IV contrast using the CT angiography protocol. Images were coned down to the right lower extremity but portions of the left leg were included in dyqyc-qu-mggu. 100 mL nonionic IV contrast was administered. Image post processing with MIP, 3D volume rendering and multiplanar reconstruction were done at the advanced workstation. One or more of the following dose reduction techniques were used: Automated exposure control; adjustment of the mA and/or kV according to the patient size; and/or use of iterative reconstruction technique. FINDINGS: Right leg arteries: Metal stent is present in the right external iliac artery. No significant opacification is present in the right external iliac artery, right common femoral artery, right superficial femoral artery, right popliteal artery, or right trifurcation arteries. There is heavy calcified plaque in the right internal iliac arteries which appear to be segmentally patent. The proximal right profunda femoris artery is occluded but collaterals reconstitute the distal right profunda femoris artery. Left leg arteries: Metal stent is present in the left external iliac artery. The left common femoral artery is excluded from qophj-ov-orgu. The visualized portions of left superficial femoral artery, popliteal artery, and trifurcation arteries are patent but have moderate to large volume of diffuse plaque. Other: Old healed fracture seen in the right iliac bone. IMPRESSION: The right external iliac, common femoral, superficial femoral, popliteal, and trifurcation arteries are occluded. PAGE 1 Signed Report (CONTINUED) Name: SHAUNA DUMONT [facility] : 1960 Age/S: 58 / M [address] [facility] Unit #: [id number] Loc: [place], [place] [address] Phys : Luis Carlos Castellon MD Acct: [id number] Dis Date: Status: REG ER PHONE #: [phone] Exam Date: 12/09/20182250 FAX #: [phone] Reason: Concern for dec arterial flow EXAMS: CPT CODE: [id number] [place] [id number] <Continued> at 0110 Reported and signed by: Halima Mora MD CC: Luis Carlos Castellon MD Kael hnologist:CHINTAN KIM CTDI: DLP: Trnscb Date/T monica: 12/10/2018 (0110) t.SDR.CLW Orig Print D/T: S: 12/10 (0113) CTDI: DLP: PAGE 2 Si gned Report CBC W/MANUAL [id number] 23:13:00* Test Item Value Reference Range Comments WHITE BLOOD CELL (test code=WBC) 10.2 K/mm3 4.5-12.5 RED BLOOD CELL (test code=RBC) 4.42 mill/mm3 4.0-5.8 HEMOGLOBIN (test code=HGB) 12.6 gram/dL 13.0-17.5 HEMATOCRIT (test code=HCT) 39.9 % 42.0-52.0 MEAN CELL VOLUME (test code=MCV) 90.3 fL 80-98 MEAN CELL HGB (test code=MCH) 28.5 picogram 27.0-33.0 MEAN CELL HGB CONCETRATION (test code=MCHC) 31.6 gram/dL 33.0-36.0 RED CELL DISTRIBUTION WIDTH (test code=RDW) 17.8 % 11.6-16.2 RED CELL DISTRIBUTION WIDTH SD (test code=RDW-SD) 58.4 fL 37.0-51.0 PLATELET COUNT (test code=PLT) 208 K/mm3 150-450 MEAN PLATELET VOLUME (test code=MPV) 9.4 fL 6.7-11.0 IMMATURE GRANULOCYTE % (test code=IG%) 0.3 % 0.0-5.0 NUCLEATED RBC % (test code=NRBC%) 0.0 % 0-0 NEUTROPHIL # (test code=NT#) 7.36 K/mm3 1.8-7.7 IMMATURE GRANULOCYTE # (test code=IG#) 0.03 x10 3/uL 0-0.03 LYMPHOCYTE # (test code=LY#) 2.24 K/mm3 1.0-5.0 MONOCYTE # (test code=MO#) 0.52 K/mm3 0-0.8 EOSINOPHIL # (test code=EO#) 0.03 K/mm3 0.0-0.5 BASOPHIL # (test code=BA#) 0.04 K/mm3 0.0-0.2 NUCLEATED RBC # (test code=NRBC#) 0.00 K/mm3 0.0-0.1 MANUAL DIFF REQUIRED (test code=MDIFF) YES STAIN ACCEPTABILITY (test code=STN ACCEPTABLE) STAIN ACCEPTABLE TOTAL CELLS COUNTED (test code=TCC) 115 #CELLS SEGMENTED NEUTROPHILS (test code=SEG) 76.5 % 39-69 BAND NEUTROPHIL (test code=BAND) 0 % 0-10 LYMPHOCYTE (test code=LYMPH) 20.0 % 25-55 REACTIVE LYMPH (test code=RELYMPH) 0 % MONOCYTE (test code=MON) 2.6 % 0-10 EOSINOPHIL (test code=EOS) 0 % 0.0-5.0 BASOPHIL (test code=BASO) 0.9 % 0-1.0 METAMYELOCYTE (test code=META) 0 % 0-0 MYELOCYTE (test code=MYELO) 0 % 0.0-0.0 PROMYELOCYTE (test code=PROM) 0 % 0-0 HYPOCHROMIA (test code=HYPO) 1+ ANISOCYTOSIS (test code=ANISO) 1+ MACROCYTOSIS (test code=MACR) 1+ PLATELET ESTIMATE (test code=PLTEST) ADEQUATE PLATELET MORPHOLOGY (test code=PLTMORPH) NORMAL IMMATURE FORMS (test code=IMMAT) 0 % BASIC METABOLIC [id number] 22:19:00* Test Item Value Reference Range Comments SODIUM (test code=NA) 132 mmol/L 136-145 POTASSIUM (test code=K) 4.0 mmol/L 3.5-5.1 CHLORIDE (test code=CL) 99.0 mmol/L 98-107 CARBON DIOXIDE (test code=CO2) 25.0 mmol/L 21-32 ANION GAP (test code=GAP) 12.0 10-20 GLUCOSE (test code=GLU) 147 mg/dL 74-106 BLOOD UREA NITROGEN (test code=BUN) 9 mg/dL 7-18 GLOMERULAR FILTRATION RATE (test code=GFR) > 60 mL/min >=60 Estimated GFR by using Modified MDRD formula.Chronic kidney disease is defined as either kidney damageor GFR <60 mL/min/1.73 m2 for >3 months. CREATININE (test code=CREAT) 0.70 mg/dL 0.7-1.3 BUN/CREATININE RATIO (test code=BUN/CREA) 12.9 10-20 CALCIUM (test code=CA) 8.7 mg/dL 8.5-10.1 BASIC METABOLIC [id number] 22:16:00* Test Item Value Reference Range Comments SODIUM (test code=NA) 132 mmol/L 136-145 POTASSIUM (test code=K) 4.0 mmol/L 3.5-5.1 CHLORIDE (test code=CL) 99.0 mmol/L 98-107 CARBON DIOXIDE (test code=CO2) mmol/L 21-32 ANION GAP (test code=GAP) 10-20 GLUCOSE (test code=GLU) mg/dL 74-106 BLOOD UREA NITROGEN (test code=BUN) mg/dL 7-18 GLOMERULAR FILTRATION RATE (test code=GFR) mL/min >=60 CREATININE (test code=CREAT) mg/dL 0.7-1.3 BUN/CREATININE RATIO (test code=BUN/CREA) 10-20 CALCIUM (test code=CA) mg/dL 8.5-10.1 CBC W/MANUAL [id number] 21:56:00* Test Item Value Reference Range Comments WHITE BLOOD CELL (test code=WBC) 10.2 K/mm3 4.5-12.5 RED BLOOD CELL (test code=RBC) 4.42 mill/mm3 4.0-5.8 HEMOGLOBIN (test code=HGB) 12.6 gram/dL 13.0-17.5 HEMATOCRIT (test code=HCT) 39.9 % 42.0-52.0 MEAN CELL VOLUME (test code=MCV) 90.3 fL 80-98 MEAN CELL HGB (test code=MCH) 28.5 picogram 27.0-33.0 MEAN CELL HGB CONCETRATION (test code=MCHC) 31.6 gram/dL 33.0-36.0 RED CELL DISTRIBUTION WIDTH (test code=RDW) 17.8 % 11.6-16.2 RED CELL DISTRIBUTION WIDTH SD (test code=RDW-SD) 58.4 fL 37.0-51.0 PLATELET COUNT (test code=PLT) 208 K/mm3 150-450 MEAN PLATELET VOLUME (test code=MPV) 9.4 fL 6.7-11.0 IMMATURE GRANULOCYTE % (test code=IG%) 0.3 % 0.0-5.0 NUCLEATED RBC % (test code=NRBC%) 0.0 % 0-0 NEUTROPHIL # (test code=NT#) 7.36 K/mm3 1.8-7.7 IMMATURE GRANULOCYTE # (test code=IG#) 0.03 x10 3/uL 0-0.03 LYMPHOCYTE # (test code=LY#) 2.24 K/mm3 1.0-5.0 MONOCYTE # (test code=MO#) 0.52 K/mm3 0-0.8 EOSINOPHIL # (test code=EO#) 0.03 K/mm3 0.0-0.5 BASOPHIL # (test code=BA#) 0.04 K/mm3 0.0-0.2 NUCLEATED RBC # (test code=NRBC#) 0.00 K/mm3 0.0-0.1 MANUAL DIFF REQUIRED (test code=MDIFF) YES STAIN ACCEPTABILITY (test code=STN ACCEPTABLE) TOTAL CELLS COUNTED (test code=TCC) #CELLS SEGMENTED NEUTROPHILS (test code=SEG) % 39-69 LYMPHOCYTE (test code=LYMPH) % 25-55 MONOCYTE (test code=MON) % 0-10 EOSINOPHIL (test code=EOS) % 0.0-5.0 CABOT RINGS (test code=CAB) MORPHOLOGY COMMENT (test code=MOC) PLATELET ESTIMATE (test code=PLTEST) PLATELET MORPHOLOGY (test code=PLTMORPH) CBC W/MANUAL [id number] 21:56:00* Test Item Value Reference Range Comments WHITE BLOOD CELL (test code=WBC) 10.2 K/mm3 4.5-12.5 RED BLOOD CELL (test code=RBC) 4.42 mill/mm3 4.0-5.8 HEMOGLOBIN (test code=HGB) 12.6 gram/dL 13.0-17.5 HEMATOCRIT (test code=HCT) 39.9 % 42.0-52.0 MEAN CELL VOLUME (test code=MCV) 90.3 fL 80-98 MEAN CELL HGB (test code=MCH) 28.5 picogram 27.0-33.0 MEAN CELL HGB CONCETRATION (test code=MCHC) 31.6 gram/dL 33.0-36.0 RED CELL DISTRIBUTION WIDTH (test code=RDW) 17.8 % 11.6-16.2 RED CELL DISTRIBUTION WIDTH SD (test code=RDW-SD) 58.4 fL 37.0-51.0 PLATELET COUNT (test code=PLT) 208 K/mm3 150-450 MEAN PLATELET VOLUME (test code=MPV) 9.4 fL 6.7-11.0 IMMATURE GRANULOCYTE % (test code=IG%) 0.3 % 0.0-5.0 NUCLEATED RBC % (test code=NRBC%) 0.0 % 0-0 NEUTROPHIL # (test code=NT#) 7.36 K/mm3 1.8-7.7 IMMATURE GRANULOCYTE # (test code=IG#) 0.03 x10 3/uL 0-0.03 LYMPHOCYTE # (test code=LY#) 2.24 K/mm3 1.0-5.0 MONOCYTE # (test code=MO#) 0.52 K/mm3 0-0.8 EOSINOPHIL # (test code=EO#) 0.03 K/mm3 0.0-0.5 BASOPHIL # (test code=BA#) 0.04 K/mm3 0.0-0.2 NUCLEATED RBC # (test code=NRBC#) 0.00 K/mm3 0.0-0.1 MANUAL DIFF REQUIRED (test code=MDIFF) YES STAIN ACCEPTABILITY (test code=STN ACCEPTABLE) TOTAL CELLS COUNTED (test code=TCC) #CELLS SEGMENTED NEUTROPHILS (test code=SEG) % 39-69 LYMPHOCYTE (test code=LYMPH) % 25-55 MONOCYTE (test code=MON) % 0-10 EOSINOPHIL (test code=EOS) % 0.0-5.0 CABOT RINGS (test code=CAB) MORPHOLOGY COMMENT (test code=MOC) PLATELET ESTIMATE (test code=PLTEST) PLATELET MORPHOLOGY (test code=PLTMORPH) CBC W/MANUAL [id number] 21:56:00* Test Item Value Reference Range Comments WHITE BLOOD CELL (test code=WBC) 10.2 K/mm3 4.5-12.5 RED BLOOD CELL (test code=RBC) 4.42 mill/mm3 4.0-5.8 HEMOGLOBIN (test code=HGB) 12.6 gram/dL 13.0-17.5 HEMATOCRIT (test code=HCT) 39.9 % 42.0-52.0 MEAN CELL VOLUME (test code=MCV) 90.3 fL 80-98 MEAN CELL HGB (test code=MCH) 28.5 picogram 27.0-33.0 MEAN CELL HGB CONCETRATION (test code=MCHC) 31.6 gram/dL 33.0-36.0 RED CELL DISTRIBUTION WIDTH (test code=RDW) 17.8 % 11.6-16.2 RED CELL DISTRIBUTION WIDTH SD (test code=RDW-SD) 58.4 fL 37.0-51.0 PLATELET COUNT (test code=PLT) 208 K/mm3 150-450 MEAN PLATELET VOLUME (test code=MPV) 9.4 fL 6.7-11.0 IMMATURE GRANULOCYTE % (test code=IG%) 0.3 % 0.0-5.0 NUCLEATED RBC % (test code=NRBC%) 0.0 % 0-0 NEUTROPHIL # (test code=NT#) 7.36 K/mm3 1.8-7.7 IMMATURE GRANULOCYTE # (test code=IG#) 0.03 x10 3/uL 0-0.03 LYMPHOCYTE # (test code=LY#) 2.24 K/mm3 1.0-5.0 MONOCYTE # (test code=MO#) 0.52 K/mm3 0-0.8 EOSINOPHIL # (test code=EO#) 0.03 K/mm3 0.0-0.5 BASOPHIL # (test code=BA#) 0.04 K/mm3 0.0-0.2 NUCLEATED RBC # (test code=NRBC#) 0.00 K/mm3 0.0-0.1 MANUAL DIFF REQUIRED (test code=MDIFF) YES STAIN ACCEPTABILITY (test code=STN ACCEPTABLE) TOTAL CELLS COUNTED (test code=TCC) #CELLS SEGMENTED NEUTROPHILS (test code=SEG) % 39-69 LYMPHOCYTE (test code=LYMPH) % 25-55 MONOCYTE (test code=MON) % 0-10 EOSINOPHIL (test code=EOS) % 0.0-5.0 MORPHOLOGY COMMENT (test code=MOC) PLATELET ESTIMATE (test code=PLTEST) PLATELET MORPHOLOGY (test code=PLTMORPH) CBC W/MANUAL [id number] 21:56:00* Test Item Value Reference Range Comments WHITE BLOOD CELL (test code=WBC) 10.2 K/mm3 4.5-12.5 RED BLOOD CELL (test code=RBC) 4.42 mill/mm3 4.0-5.8 HEMOGLOBIN (test code=HGB) 12.6 gram/dL 13.0-17.5 HEMATOCRIT (test code=HCT) 39.9 % 42.0-52.0 MEAN CELL VOLUME (test code=MCV) 90.3 fL 80-98 MEAN CELL HGB (test code=MCH) 28.5 picogram 27.0-33.0 MEAN CELL HGB CONCETRATION (test code=MCHC) 31.6 gram/dL 33.0-36.0 RED CELL DISTRIBUTION WIDTH (test code=RDW) 17.8 % 11.6-16.2 RED CELL DISTRIBUTION WIDTH SD (test code=RDW-SD) 58.4 fL 37.0-51.0 PLATELET COUNT (test code=PLT) 208 K/mm3 150-450 MEAN PLATELET VOLUME (test code=MPV) 9.4 fL 6.7-11.0 IMMATURE GRANULOCYTE % (test code=IG%) 0.3 % 0.0-5.0 NUCLEATED RBC % (test code=NRBC%) 0.0 % 0-0 NEUTROPHIL # (test code=NT#) 7.36 K/mm3 1.8-7.7 IMMATURE GRANULOCYTE # (test code=IG#) 0.03 x10 3/uL 0-0.03 LYMPHOCYTE # (test code=LY#) 2.24 K/mm3 1.0-5.0 MONOCYTE # (test code=MO#) 0.52 K/mm3 0-0.8 EOSINOPHIL # (test code=EO#) 0.03 K/mm3 0.0-0.5 BASOPHIL # (test code=BA#) 0.04 K/mm3 0.0-0.2 NUCLEATED RBC # (test code=NRBC#) 0.00 K/mm3 0.0-0.1 MANUAL DIFF REQUIRED (test code=MDIFF) YES STAIN ACCEPTABILITY (test code=STN ACCEPTABLE) TOTAL CELLS COUNTED (test code=TCC) #CELLS SEGMENTED NEUTROPHILS (test code=SEG) % 39-69 LYMPHOCYTE (test code=LYMPH) % 25-55 MONOCYTE (test code=MON) % 0-10 MORPHOLOGY COMMENT (test code=MOC) PLATELET ESTIMATE (test code=PLTEST) PLATELET MORPHOLOGY (test code=PLTMORPH) CBC W/MANUAL [id number] 21:56:00* Test Item Value Reference Range Comments WHITE BLOOD CELL (test code=WBC) 10.2 K/mm3 4.5-12.5 RED BLOOD CELL (test code=RBC) 4.42 mill/mm3 4.0-5.8 HEMOGLOBIN (test code=HGB) 12.6 gram/dL 13.0-17.5 HEMATOCRIT (test code=HCT) 39.9 % 42.0-52.0 MEAN CELL VOLUME (test code=MCV) 90.3 fL 80-98 MEAN CELL HGB (test code=MCH) 28.5 picogram 27.0-33.0 MEAN CELL HGB CONCETRATION (test code=MCHC) 31.6 gram/dL 33.0-36.0 RED CELL DISTRIBUTION WIDTH (test code=RDW) 17.8 % 11.6-16.2 RED CELL DISTRIBUTION WIDTH SD (test code=RDW-SD) 58.4 fL 37.0-51.0 PLATELET COUNT (test code=PLT) 208 K/mm3 150-450 MEAN PLATELET VOLUME (test code=MPV) 9.4 fL 6.7-11.0 IMMATURE GRANULOCYTE % (test code=IG%) 0.3 % 0.0-5.0 NUCLEATED RBC % (test code=NRBC%) 0.0 % 0-0 NEUTROPHIL # (test code=NT#) 7.36 K/mm3 1.8-7.7 IMMATURE GRANULOCYTE # (test code=IG#) 0.03 x10 3/uL 0-0.03 LYMPHOCYTE # (test code=LY#) 2.24 K/mm3 1.0-5.0 MONOCYTE # (test code=MO#) 0.52 K/mm3 0-0.8 EOSINOPHIL # (test code=EO#) 0.03 K/mm3 0.0-0.5 BASOPHIL # (test code=BA#) 0.04 K/mm3 0.0-0.2 NUCLEATED RBC # (test code=NRBC#) 0.00 K/mm3 0.0-0.1 MANUAL DIFF REQUIRED (test code=MDIFF) YES STAIN ACCEPTABILITY (test code=STN ACCEPTABLE) TOTAL CELLS COUNTED (test code=TCC) #CELLS SEGMENTED NEUTROPHILS (test code=SEG) % 39-69 LYMPHOCYTE (test code=LYMPH) % 25-55 MONOCYTE (test code=MON) % 0-10 EOSINOPHIL (test code=EOS) % 0.0-5.0 CABOT RINGS (test code=CAB) MORPHOLOGY COMMENT (test code=MOC) PLATELET ESTIMATE (test code=PLTEST) PLATELET MORPHOLOGY (test code=PLTMORPH) - XR ANKLE 2 VIEWS [id number] 19:29:00 FAX: Luis Carlos Castellon MD [phone] [place]: St: REG Name: SHAUNA TABOR [facility] : [birth year] Age/S: 58/M [address] [facility] Unit #: [id number] Loc: [place] [address] Phys: Luis Carlos Castellon MD Acct: [id number] Dis Date: Status: REG ER PHONE #: [phone] Exam Date: 12/09/20181927 FAX #: [phone] Reason: ankle swelling EXAMS: CPT CODE: [id number] X[place]KLE [address] [place] [id number] REASON FOR EXAM: ankle swelling EXAM ORDER DATE: 12/09/2018 5:55 PM Ordering MMarshall: Luis Carlos Castellon MD PROCEDURE: - XR ANKLE 2 EWS RT FINDINGS: 3 views of the right ankle were obtained. The oss eous structures are unremarkable in size and shape aside from generalized diffuse osteopenia suggestive of disuse, advanced for age. The joint spaces are maintained. No evidence of fracture. The syndesmosis is intac t. IMPRESSION: Diffuse generalized osteopenia. No acute osseo us abnormality Electronically Signed by Nayely Mckenna on 11/23 at 1929 Reported and signed by: Ang Mckenna M.D. CC: Luis Carlos Castellon MD Kael hnologist: EDY ADAIR Trnscrd Date/T monica/By: 12/09/2018 (1928) : By: GarlandVTL Orig Print D/T: S: 9 (1932) PAGE 1 Signed Report
[2019-01-20] MEDS ORDERED: PIPER-TAZ 3.375 GM 50 ML IV NR (15:45)
[2019-01-20] MEDS ORDERED: VANCOMYCIN 1GM/NS 250 ML 250 ML IV NR (15:45)
[2019-01-20 16:09] LABS: BASOPHILS # (AUTO) 0.1 (0.0-0.1); BASOPHILS % 0.7 % (0.0-1.0); EOSINOPHILS # (AUTO) 0.2 (0.0-0.4); EOSINOPHILS % 2.5 % (0.0-6.0); HEMATOCRIT 36.6 % (38.2-49.6); HEMOGLOBIN 12.4 g/dL (14.0-18.0); LYMPHOCYTES # (AUTO) 2.3 (1.0-3.2); LYMPHOCYTES % 31.3 % (18.0-39.1); MEAN CORPUSCULAR HEMOGLOBIN 29.7 pg (28-32); MEAN CORPUSCULAR HGB CONC 33.9 g/dL (31-35); MEAN CORPUSCULAR VOLUME 87.8 fL (81-99); MONOCYTES # (AUTO) 0.6 (0.2-0.8); MONOCYTES % 7.8 % (4.4-11.3); NEUTROPHILS # (AUTO) 4.1 (2.1-6.9); NEUTROPHILS % 57.4 % (38.7-80.0); PLATELET COUNT 458 x10e3/uL (140-360); RED BLOOD COUNT 4.17 x10e6/uL (4.3-5.7); RED CELL DISTRIBUTION WIDTH 17.2 % (11.7-14.4)
[2019-01-20 16:12] LABS: BILIRUBIN,URINE NEGATIVE (NEGATIVE); CLARITY,URINE SL CLOUDY (CLEAR); COLOR,URINE YELLOW (YELLOW); KETONES,URINE NEGATIVE (NEGATIVE); LEUKOCYTE ESTERASE ,URINE NEGATIVE (NEGATIVE); NITRITE,URINE NEGATIVE (NEGATIVE); PROTEIN,URINE DIPSTICK NEGATIVE (NEGATIVE); URINE UROBILINOGEN 1 mg/dL (0.2 - 1)
[2019-01-20 16:18] LABS: AMPHETAMINES SCREEN,URINE NEGATIVE (NEGATIVE); BENZODIAZEPINES SCREEN,URINE NEGATIVE (NEGATIVE); PHENCYCLIDINE SCREEN,URINE NEGATIVE (NEGATIVE)
--- NOTE | 2019-01-20 16:20 | NUR ---
RADIOLOGY AT BEDSIDE AT THIS TIME FOR EXAM.
[2019-01-20 16:21] LABS: INR 0.96; PARTIAL THROMBOPLASTIN TIME 31.4 seconds (23.8-35.5); PROTHROMBIN TIME 13.3 seconds (11.9-14.5)
[2019-01-20 16:35] LABS: ALANINE AMINOTRANSFERASE 933 IU/L (0-55); ALBUMIN 3.4 g/dL (3.5-5.0); ALBUMIN/GLOBULIN RATIO 0.9 (0.8-2.0); ALKALINE PHOSPHATASE 256 IU/L (40-150); ANION GAP 10.8 mmol/L (8-16); BLOOD UREA NITROGEN 6 mg/dL (7-26); BUN/CREATININE RATIO 9 (6-25); CALCIUM 9.7 mg/dL (8.4-10.2); CARBON DIOXIDE 25 mmol/L (22-29); CHLORIDE 99 mmol/L (98-107); CREATININE, SERUM 0.68 mg/dL (0.72-1.25); EST GLOMERULAR FILTRATION RATE > 60 ML/MIN (60-); GLUCOSE 115 mg/dL (74-118); MAGNESIUM 2.3 MG/DL (1.3-2.1); POTASSIUM 3.8 mmol/L (3.5-5.1); SODIUM 131 mmol/L (136-145)
[2019-01-20 16:42] LABS: BACTERIA,URINE RARE /HPF
--- NOTE | 2019-01-20 18:07 | Diagnostic Imaging Report ---
Right femur x-ray - 2 views HISTORY: ^Cellulitis, rule out osteo COMPARISON: None available. FINDINGS: Bones: No acute displaced fracture. 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 Osseous alignment is within normal limits. Joints: Moderate degenerative changes of the right acetabular femoral joint. Soft tissues: Postsurgical changes within the right inguinal region and distal thigh. Metallic stent overlying the right femoral artery. Diffuse vascular calcifications. Diffuse soft tissue swelling within the inner and distal aspect of the thigh. IMPRESSION: Soft tissue swelling along the right thigh without findings to suggest osteomyelitis at the surgical stump. Signed by: Dr. Tanya Araya M.D. on 01/20/2019 6:03 PM
[2019-01-20] MEDS: ONDANSETRON HCL INJ 2MG/ML 2ML 2 MG/ML VIAL IV PRN (19:30)
[2019-01-20] MEDS: MORPHINE SULFATE INJ 4 MG/ML INJ 1ML IV PRN (19:30)
--- NOTE | 2019-01-20 20:43 | NUR ---
PATIENT ARRIVED VIA STRETCHER. PATIENT IS A&OX3. RECEIVED REPORT FROM CHELE SALAZAR NURSE.
[2019-01-20 21:25] VITALS: BP 148/83
--- NOTE | 2019-01-20 22:40 | NUR ---
PATIENT COMPLAINING OF PAIN. CALLED AND TALKED TO DR. PRICE ABOUT PATIENT WANTING STRONGER PAIN MEDICATION. DR. PRICE ORDERED TORADOL Q 6 PRN AND NO OTHER PAIN MEDICATION FOR THE PATIENT.
[2019-01-20] MEDS ORDERED: KETOROLAC TROMETHAMINE 30 MG/ML VIAL IV PRN (22:45)
[2019-01-20 23:26] VITALS: BP 148/83
[2019-01-20 23:50] VITALS: BP 149/76
[2019-01-20 23:58] VITALS: BP 149/76
[2019-01-21] VITALS (9 sets, daily range): BP systolic 126–159; BP diastolic 76–80
[2019-01-21] MEDS: PIPER-TAZ 3.375 GM 50 ML IV SCH ×4 (00:05→20:19)
[2019-01-21] MEDS ORDERED: SODIUM CHLORIDE 0.9% 250ML 250 ML ONE (00:10)
--- NOTE | 2019-01-21 00:22 | NUR ---
PATIENT IS CALLING CONSTANTLY COMPLAINING OF PAIN. DR RAMOS SAID DO NOT CALL HIM IF THE PATIENT IS COMPLAINING OF PAIN AND WANTS MORE PAIN MEDICATION
--- NOTE | 2019-01-21 01:12 | NUR ---
PATIENT WAS TOLD HE WILL BE NPO AT MIDNIGHT, NOTHING TO EAT OR DRINK AFTER MIDNIGHT WHEN HE ARRIVED TO THE UNIT. PATIENT VERBALIZED UNDERSTANDING. I JUST WALKED IN ON THE PATIENT DRINKING JUICE AND ABOUT TO EAT AND REMINDED THE PATIENT THEY CAN NOT EAT OR DRINK ANYTHING.
[2019-01-21] MEDS: VANCOMYCIN 1GM/NS 250 ML 250 ML IV SCH ×2 (05:15→18:31)
[2019-01-21] MEDS: MORPHINE SULFATE INJ 4 MG/ML INJ 1ML IV PRN ×4 (05:29→21:13)
--- NOTE | 2019-01-21 07:14 | NUR ---
Gave report to oncoming nurse. Patient in bed. Call light within reach
[2019-01-21] MEDS: ONDANSETRON HCL INJ 2MG/ML 2ML 2 MG/ML VIAL IV PRN (11:34)
--- NOTE | 2019-01-21 13:49 | NUR ---
WOUND CARE CONSULTATION - INITIAL EVALUATION Patient admitted from home to ER for pain to Right AKA,for right thigh infection. Dr Kate on case- patient refused doctor and services were transferred to Dr. Johnson for Possible AKA revision. LABS: WBC7.1 HGB12.4 HCT36.6 NEUT%57.4 KAH868 ALB3.4 Wound Culture- Few gram + Cocci, and Gram - Bacilli. Urine Culture- No Growth Blood Cultures- Results Pending Femur X-Ray - Soft tissue swelling without osteomyelitis PATIENT VISIT: Patient AAOX3, Talkative, In good spirits. Cooperative Self limiting. Presents with incision to Right AKA site with tissue necrosis. Arron in place. Most arron loose and no longer keeping incision line approximated. 50% eschar, 20% slough, 30% granular tissue that is pale/ dark red. Wound measurements 14x5x0.5 cm.Unable to palpate for induration. Patient verbalizes severe pain and states current pain medication is not enough to help for dressing changes. Last medicated with Toradol recently but still unable to tolerate mild touching and guards the area. Limited assessment. Aroldo Score 14 Moderate PUP Active Visco Mattress in place. Able to turn self and sit at bedside without assistance. IMPRESSION: 1. 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 RECOMMENDATION: 1. 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 - Cleanse wound with NS and 4x4 gauze - Apply mixture of Santyl and Bactroban ( 50/50 mix) over wound bed and cover with Xeroform Single Layer , 4x4 gauze and secure with Light Kerlix wrap Daily. Schedule dressing changes after administering pain medication. Thank you for consulting with Wound Care. Addendum: 01/21/19 at 1409 by Zac Basilio RN Amended: Links added.
--- NOTE | 2019-01-21 16:00 | NUR ---
Nurse tried to attempted wound care to pt. Pt refused and stated "I'd prefer a man to do my wound care, man to man." Nurse informed wound care nurse of pt request, will follow up with pt.
--- NOTE | 2019-01-21 19:10 | NUR ---
RECEIVED AAOX3, SITTING IN BED. DR. PALOMO RECENTLY ROUNDED. PLAN FOR DEBRIDEMENT 01/22 AROUND [id number]. NO NEEDS VOICED AT THIS TIME. BED LOCKED AND IN LOWEST POSITION, CALL LIGHT WITHIN EASY REACH. WILL CONTINUE TO MONITOR PATIENT.
--- NOTE | 2019-01-21 20:43 | NUR ---
consent signed and placed to chart.
[2019-01-22] VITALS (7 sets, daily range): BP systolic 116–149; BP diastolic 70–86
[2019-01-22] MEDS: PIPER-TAZ 3.375 GM 50 ML IV SCH ×5 (00:27→23:31)
--- NOTE | 2019-01-22 01:32 | Consultation ---
DATE OF CONSULTATION: 01/21/2019 CHIEF COMPLAINT: Right AKA stump necrosis. HISTORY OF PRESENT ILLNESS: The patient is a 58-year-old male, who is 1 month status post right above-knee amputation with poor healing in the AKA stump. He complained of severe pain. No history of fevers. PAST MEDICAL HISTORY: Positive for DVT, pneumonia, chronic back pain, and schizophrenia. SURGICAL HISTORY: Positive for cholecystectomy and right aritn-bam-lcty amputation. ALLERGIES: HE HAS NO DRUG ALLERGIES. SOCIAL HABITS: He is a smoker of cigarettes and past history use of marijuana. He denies significant alcohol use. REVIEW OF SYSTEMS: No chest pain. No shortness of breath. PHYSICAL EXAMINATION: VITAL SIGNS: Stable, was afebrile. GENERAL: He is awake, alert, in mild discomfort. HEENT: Sclerae nonicteric. NECK: Supple. LUNGS: Clear. HEART: Regular rate and rhythm. ABDOMEN: Soft and nontender. EXTREMITIES: Revealed right above knee amputations stump with necrotic skin with exposed underlying soft tissue. No purulence. Mild erythema. Bone is not exposed. LABORATORY DATA: The patient's white cell count of 7, hemoglobin of 12. Creatinine 0.7. X-ray soft tissue swelling without osteomyelitis. ASSESSMENT: Right emrxu-fzz-jpjb amputation stump. Complications with skin necrosis. PLAN: Debridement under anesthesia followed by wound VAC placement. MD YINKA Salamanca/MODLen /[id number]
[2019-01-22] MEDS: MORPHINE SULFATE INJ 4 MG/ML INJ 1ML IV PRN ×5 (02:28→23:31)
[2019-01-22] MEDS: VANCOMYCIN 1GM/NS 250 ML 250 ML IV SCH ×2 (06:00→17:23)
--- NOTE | 2019-01-22 06:58 | NUR ---
report given to oncoming nurse for continuity of care. patient is in stable condition.
--- NOTE | 2019-01-22 07:30 | NUR ---
The pt. was received from the off-going nurse and he is awake,alert and oriented. The pt. is asking for pain med and was advised that it is too soon and med will be given susana. The pt. was reminded of N P O status for surgery this afternoon.
[2019-01-22] MEDS: MUPIROCIN 2% OINT 22 GM TUBE TOP SCH (07:43)
[2019-01-22] MEDS: COLLAGENASE 5 GM TUBE TOP SCH (07:44)
--- NOTE | 2019-01-22 08:45 | NUR ---
The lab called to report that the pt. has MRSA in his wound and needs isolation. The pt. also declines wound care stating "the wound care eduard was supposed to come and dress the wound and he has not done so. Just forget it I going to surgery anyway."
--- NOTE | 2019-01-22 09:43 | NUR ---
Visit made by the Spiritual Care Department PRN [employer], Cici Rasmussen, based on consult request. PV provided pastoral presence, hospitality, and supportive listening. [employer]er informed pt/family of the scope of Bus Escort Services and availability. JALEN Leeslain Spiritual Care Department O: [phone] Pager: [phone] ([phone] number calling from)
--- NOTE | 2019-01-22 10:52 | NUR ---
The pt. has been escorted to surgery via bed ans is in stble condition. The noon zosyn was sent with the pt. at the request of the O R nurse.
[2019-01-22] MEDS ORDERED: ACETAMINOPHEN 1000 MG/100 ML 100 ML IV ONE (11:54)
[2019-01-22] MEDS ORDERED: BACITRACIN 50,000 UNIT VIAL ONE (11:55)
[2019-01-22] MEDS ORDERED: ONDANSETRON HCL 4 MG ORAL DISINTEGRATING TAB PO PRN (12:00)
--- NOTE | 2019-01-22 12:59 | Operative Report ---
DATE OF PROCEDURE: 01/22/2019 SURGEON: Christofer Johnson MD PREOPERATIVE DIAGNOSIS: Right above-knee amputation stump necrosis. POSTOPERATIVE DIAGNOSIS: Right above-knee amputation stump necrosis. OPERATIVE PROCEDURE: Debridement of right above-knee amputation stump. ANESTHESIA: General. INDICATIONS: A 58-year-old male one month status post right above-knee amputation with necrosis of the right AKA stump requiring debridement. The patient consented for the procedure with all attendant risks discussed. DESCRIPTION OF PROCEDURE: The patient was brought to the OR and intubated in the supine position. The right AKA stump prepped with Betadine and draped in sterile fashion. The wound was opened and measured approximately 20 x 6 cm with necrotic skin and underlying soft tissue. Starting at the margins of the wound, the necrotic skin eschar is removed with sharp dissection following the border of the wound circumferentially. Dissection was then carried out in the deep plane of the eschar lifting it off the underlying fatty tissue. Some residual necrotic and fibrinous exudative material was then debrided off the wound base using sharp scissor dissection. The wound was then irrigated. Hemostasis achieved. Dressing applied with wet-to- dry, 4 x 4 gauze, and Kerlix roll. The patient tolerated the procedure well. Estimated blood losswas minimal. Christofer Johnson MD DNL/MODL /[id number]
--- NOTE | 2019-01-22 13:15 | NUR ---
The pt. returned to the unit from P ACU awake and alert. vital signs are as follows 97.1 68 18 145/78 98% o2 sat. The pt. currently has a dressing the to right AKA which is clean and dry. Iv fluids are infusing ad will be dc'd once completed.
[2019-01-22] MEDS ORDERED: FENTANYL CITRATE/PF 100MCG/2 ML INJ ONE (13:54)
[2019-01-22] MEDS ORDERED: MIDAZOLAM HCL 2 MG/2 ML VIAL ONE (13:54)
[2019-01-22] MEDS ORDERED: ALBUTEROL/IPRATROPIUM 3 ML NEB NEB PRN (15:15)
[2019-01-22] MEDS: SENNOSIDES 8.6 MG TAB PO SCH (16:00)
[2019-01-22] MEDS: LACTOBACILLUS ACIDOPHILUS CAPSULE PO SCH ×2 (16:00→16:01)
--- NOTE | 2019-01-22 17:11 | NUR ---
The pt. is to transfer to room 287 and I called to give report to the receiving nurse and she asks if she can return the call shortly.
[2019-01-22] MEDS ORDERED: ONDANSETRON HCL INJ 2MG/ML 2ML 2 MG/ML VIAL ONE (17:16)
[2019-01-22] MEDS ORDERED: LIDOCAINE HCL 2% LOCAL INJ 5 ML SDV VIAL INJ ONE (17:16)
[2019-01-22] MEDS ORDERED: DEXAMETHASONE SOD PHOS INJ 4 MG/ML VIAL ONE (17:16)
[2019-01-22] MEDS ORDERED: KETOROLAC TROMETHAMINE 30 MG/ML VIAL ONE (17:16)
[2019-01-22] MEDS ORDERED: SEVOFLURANE INHAL SOLN 250 ML PEN BTL ONE (17:16)
[2019-01-22] MEDS ORDERED: ACETAMINOPHEN 1000 MG/100 ML IV ONE (17:16)
[2019-01-22] MEDS ORDERED: PROPOFOL IV EMULSION 10 MG/ML 20 ML VIAL ONE (17:16)
--- NOTE | 2019-01-22 17:30 | NUR ---
PATIENT RECEIVED FROM CU PER STRETCHER. ALERT AND VERBALLY RESPONSIVE. REQUESTED AND RECEIVED SOME COFFEE. ALL PERSONAL ITEMS CLOSE TO PATIENT. DRESSING INTACT TO RIGHT BKA. BED IN LOWER POSITION, CALL LIGHT AT REACH.
--- NOTE | 2019-01-22 23:12 | History and Physical ---
CHIEF COMPLAINT: Right thumb infection, open wound, wound dehiscence. HISTORY: A 58-year-old male recently at [facility]. The patient refused any treatment to the right AKA stump that has wound dehiscence with infection, abscess drainage. The patient signed out against medical advice. 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 The patient had the same wound problem on the right AKA stump that has a wound dehiscence, open wound, stable remaining this partially skin and with drainage. The patient refused his wound stump revision by Dr. Christofer Kate and therefore Dr. Christofer Johnson is consulted. The patient is otherwise stable. He has a severe peripheral vascular disease with previous failed multiple treatment. He also has peripheral vascular intervention with previous stent. The patient also has with COPD. PAST MEDICAL HISTORY: As above. PAST SURGICAL HISTORY: Right AKA, unsuccessful healing due to the patient's noncompliance. He is to follow up with Dr. Kate. ALLERGIES: NO KNOWN ALLERGIES. HOME MEDICATIONS: List is reviewed. REVIEW OF SYSTEMS: Open wound. PHYSICAL EXAMINATION: VITAL SIGNS: Temperature is 99, blood pressure 127/86, pulse rate 65, and respirations 18. GENERAL: The patient is not in acute distress. He is awake. HEENT: Normocephalic and atraumatic. Anicteric. NECK: Supple grossly. PULMONARY: Clear. CARDIOVASCULAR: Regular rate and rhythm. ABDOMEN: Soft. EXTREMITIES: Right AKA with wound dehiscence, open wound abscess, and cellulitis with necrotic tissue. NEUROLOGIC: Neuropathy without any focal deficit. LABORATORY DATA: Sodium is 131, potassium 3.8, chloride 99, bicarb 25, BUN is 6, creatinine 0.6, glucose 115. AST is 89, ALT is 933, alkaline phosphate is 256. IMPRESSION: 1. Failed right uywda-svc-outj amputation with wound dehiscence, open wound and abscess, necrotic tissue with drainage. 2. Elevation of liver enzymes, possible from infection. PLAN: Continue with postoperative care. Surgical intervention with Dr. Christofer Johnson. IV antibiotics. Monitor liver enzymes. May need further workup, but for now continue with unsuccessful right AKA with wound dehiscence and knee revision. MD SHANIQUE Delacruz/BRIEN /[id number]
[2019-01-23] VITALS (8 sets, daily range): BP systolic 126–167; BP diastolic 63–84
[2019-01-23] MEDS: MORPHINE SULFATE INJ 4 MG/ML INJ 1ML IV PRN ×5 (03:26→23:45)
[2019-01-23 05:36] LABS: BASOPHILS # (AUTO) 0.1 (0.0-0.1); BASOPHILS % 0.6 % (0.0-1.0); EOSINOPHILS # (AUTO) 0.3 (0.0-0.4); EOSINOPHILS % 3.2 % (0.0-6.0); HEMATOCRIT 33.1 % (38.2-49.6); HEMOGLOBIN 10.7 g/dL (14.0-18.0); LYMPHOCYTES # (AUTO) 2.2 (1.0-3.2); MEAN CORPUSCULAR HEMOGLOBIN 29.5 pg (28-32); MEAN CORPUSCULAR HGB CONC 32.3 g/dL (31-35); MEAN CORPUSCULAR VOLUME 91.2 fL (81-99); MONOCYTES # (AUTO) 0.7 (0.2-0.8); PLATELET COUNT 446 x10e3/uL (140-360); RED BLOOD COUNT 3.63 x10e6/uL (4.3-5.7); RED CELL DISTRIBUTION WIDTH 16.9 % (11.7-14.4)
[2019-01-23 05:48] LABS: ANION GAP 10.3 mmol/L (8-16); BLOOD UREA NITROGEN 10 mg/dL (7-26); BUN/CREATININE RATIO 15 (6-25); CALCIUM 8.9 mg/dL (8.4-10.2); CARBON DIOXIDE 24 mmol/L (22-29); CHLORIDE 102 mmol/L (98-107); CREATININE, SERUM 0.65 mg/dL (0.72-1.25); EST GLOMERULAR FILTRATION RATE > 60 ML/MIN (60-); GLUCOSE 116 mg/dL (74-118); POTASSIUM 4.3 mmol/L (3.5-5.1); SODIUM 132 mmol/L (136-145)
[2019-01-23] MEDS: PIPER-TAZ 3.375 GM 50 ML IV SCH ×4 (05:50→23:59)
[2019-01-23] MEDS: VANCOMYCIN 1GM/NS 250 ML 250 ML IV SCH ×2 (06:22→18:28)
--- NOTE | 2019-01-23 07:15 | NUR ---
PATIENT SITTING UP IN BED DRINKING COFFEE, NO S/S OF DISTRESS NOTED. DRESSING DRY AND INTACT TO RIGHT BKA. BED IN LOWER POSITION, CALL LIGHT AT REACH.
[2019-01-23] MEDS: SENNOSIDES 8.6 MG TAB PO SCH ×2 (09:17→17:13)
[2019-01-23] MEDS: LACTOBACILLUS ACIDOPHILUS CAPSULE PO SCH ×2 (09:17→17:13)
[2019-01-23] MEDS ORDERED: KETOROLAC TROMETHAMINE 30 MG/ML VIAL IV PRN (10:00)
[2019-01-23] MEDS ORDERED: BISACODYL 10 MG SUPP PR PRN (10:00)
[2019-01-23] MEDS ORDERED: BISACODYL 10 MG SUPP PR NR (10:00)
[2019-01-23] MEDS: MAGNESIUM HYDROXIDE 30 ML UDC PO PRN ×2 (10:35→17:41)
--- NOTE | 2019-01-23 11:12 | NUR ---
PATIENT COMPLAINED OF CONSTIPATION. MD NOTIFIED, NEW ORDER RECEIVED AND IMPLEMENTED.
[2019-01-23] MEDS: HYDROCODONE/APAP 10MG-325MG TAB PO PRN ×2 (11:55→12:55)
--- NOTE | 2019-01-23 12:20 | NUR ---
PATIENT HAD AN ORDER FOR DULCOLAX SUPPOSITORY X1. OFFERED TWICE AND PATIENT REFUSED STATING " I PREFER MILK OF MAGNESIA". MILK OF MAGNESIA GIVEN ORDERED. WILL MONITOR.
[2019-01-23] MEDS: COLLAGENASE 5 GM TUBE TOP SCH (13:05)
[2019-01-23] MEDS: MUPIROCIN 2% OINT 22 GM TUBE TOP SCH (13:05)
--- NOTE | 2019-01-23 15:50 | NUR ---
PATIENT AMBULATED WITH PHYSICAL THERAPY IN ROOM. BACK TO RECLINING CHAIR, CALL LIGHT AT REACH. INSTRUCTED TO CALL FOR ASSISTANCE NEEDED.
[2019-01-24] VITALS (7 sets, daily range): BP systolic 133–153; BP diastolic 74–80
[2019-01-24] MEDS: MORPHINE SULFATE INJ 4 MG/ML INJ 1ML IV PRN ×4 (04:22→21:17)
[2019-01-24] MEDS: PIPER-TAZ 3.375 GM 50 ML IV SCH ×3 (05:33→17:50)
[2019-01-24] MEDS: VANCOMYCIN 1GM/NS 250 ML 250 ML IV SCH ×2 (06:09→18:09)
--- NOTE | 2019-01-24 07:05 | NUR ---
PATIENT IN BED RESTING WITH EYES CLOSED, NO RESPIRATORY DISTRESS OBSERVED. ALL PERSONAL ITEMS CLOSE TO PATIENT. BED IN LOWER POSITION AND LOCKED, CALL LIGHT AT REACH.
[2019-01-24] MEDS: MAGNESIUM HYDROXIDE 30 ML UDC PO PRN (08:10)
[2019-01-24] MEDS: SENNOSIDES 8.6 MG TAB PO SCH ×2 (09:26→17:49)
[2019-01-24] MEDS: LACTOBACILLUS ACIDOPHILUS CAPSULE PO SCH ×2 (09:26→17:49)
[2019-01-24] MEDS: MUPIROCIN 2% OINT 22 GM TUBE TOP SCH (10:42)
[2019-01-24] MEDS: COLLAGENASE 5 GM TUBE TOP SCH (10:42)
--- NOTE | 2019-01-24 11:15 | NUR ---
DRESSING CHANGED TO RIGHT STUMP ORDER. SITTING UP IN BED TALKING ON THE PHONE, NO DISTRESS NOTED. CALL LIGHT AT REACH.
--- NOTE | 2019-01-24 16:07 | NUR ---
PATIENT ASSISTED WITH ADLS. HAD A LARGE BM. COMPLETE LINENS CHANGED. IN BED WITH CALL LIGHT AT REACH.
--- NOTE | 2019-01-24 20:00 | NUR ---
Received change of shift report from AM nurse. Walking rounds completed.
--- NOTE | 2019-01-24 21:00 | NUR ---
Patient removed IV. Restated IV to left wrist 20G. Patient tolerated well. Patient c/o pain . Pain meds given as ordered by MD. Continue monitor.
--- NOTE | 2019-01-24 22:57 | NUR ---
Patient in bed with family at bedside. Continue monitor.
[2019-01-25] VITALS (7 sets, daily range): BP systolic 116–141; BP diastolic 70–82
[2019-01-25] MEDS: HYDROCODONE/APAP 10MG-325MG TAB PO PRN ×2 (00:06→20:54)
--- NOTE | 2019-01-25 02:08 | NUR ---
Patient resting quitly with no c/o at this time. Continue monitor.
[2019-01-25] MEDS: PIPER-TAZ 3.375 GM 50 ML IV SCH ×4 (05:36→17:30)
[2019-01-25] MEDS: VANCOMYCIN 1GM/NS 250 ML 250 ML IV SCH ×2 (05:36→18:00)
--- NOTE | 2019-01-25 07:35 | NUR ---
RECD PT SITTING UP IN BED ,AWAKE PAIN LEVEL 3
[2019-01-25] MEDS: SENNOSIDES 8.6 MG TAB PO SCH ×2 (08:39→17:00)
[2019-01-25] MEDS: LACTOBACILLUS ACIDOPHILUS CAPSULE PO SCH ×2 (08:39→17:00)
[2019-01-25] MEDS: MORPHINE SULFATE INJ 4 MG/ML INJ 1ML IV PRN ×2 (08:39→15:38)
[2019-01-25] MEDS: MUPIROCIN 2% OINT 22 GM TUBE TOP SCH (09:00)
[2019-01-25] MEDS: COLLAGENASE 5 GM TUBE TOP SCH (09:00)
--- NOTE | 2019-01-25 11:00 | NUR ---
PT SET UP BY CASE MANAGEMENT TO GO TO SNF ,PT STATED HE HAD TO GO HOME HAS PERSONAL BUSINEES TO TEND TO,
--- NOTE | 2019-01-25 12:38 | NUR ---
SPOKE WITH PATIENT ABOUT SNF REFERRAL, HE STATES HE WANTS TO GO TO A FACILITY THAT WILL ALLOW HIM TO SMOKE. HE ALSO STATES HE NEEDS TO BE HOME FIRST TO SIGN FOR HIS CHECK AND THEN WANTS TO GO TO THE BUILDING. HE SIGNED CHOICE FOR [facility], CALLED [facility] AND EXPLAINED TO THEM HIS WANTING TO GO HOME FIRST, THEY STATE THAT WE CAN START THE PROCESS AND HE CAN GO TO THEM IF THEY GET APPROVAL WITHIN 3 DAYS. FAXED CLINICALS.
--- NOTE | 2019-01-25 14:30 | NUR ---
PT C/O RT LEG PAIN MEDICATED,
--- NOTE | 2019-01-25 14:55 | NUR ---
PT GIVEN INFORMATION REGARDING HIM GOING TO [facility] FOR IV ANTIBIOTIC AND WOUND Vac
--- NOTE | 2019-01-25 15:31 | NUR ---
GAVE PT INFORMATION FOR [facility], [address], [place] [address] PHONE IS [phone], PRINTED OUT AND GAVE COPY TO PT AND RECOMMENDED HIM TO PLEASE CONTACT THEM WITHIN 3 DAYS.
--- NOTE | 2019-01-25 17:06 | NUR ---
IMM LETTER EXPLAINED TO THE PT. STATES HE IS CHOOSING TO LEAVE. IMM LETTER WAS SIGNED BY THE PT. COPY TO CHART AND COPY TO PT.
--- NOTE | 2019-01-25 18:20 | NUR ---
PT UP IN BED ,PAIN LEVEL 4 TO RT LEG
--- NOTE | 2019-01-25 18:57 | NUR ---
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
[2019-01-25] MEDS ORDERED: BACTRIM DS TAB1 EACH PO (19:17)
[2019-01-25] MEDS ORDERED: TYLENOL WITH C1 EACH PO (19:17)
[2019-01-25] MEDS ORDERED: DOXYCYCLINE HY100 MG PO (19:17)
--- NOTE | 2019-01-25 20:00 | NUR ---
Received change of shift report from AM nurse. Rounds completed.
--- NOTE | 2019-01-25 20:55 | NUR ---
Xi Manley working on D/C for patient. Patient to go home via taxi cab. Patient is right AKA with no home medical equipment and he lives in a mobil home. Xi trying to get approval for ambulance. Unable to get processed tonite. Called MD to inform of delay. Patient agreed to stay to get med supplies in order.
--- NOTE | 2019-01-25 21:40 | NUR ---
S/W Dr Diaz r/t patient d/c. Patient with no med equipment set up. Dr Diaz agrees to d/c tomorrow. Dr grover.
[2019-01-26] MEDS: HYDROCODONE/APAP 10MG-325MG TAB PO PRN (01:09)
[2019-01-26 01:16] VITALS: BP 153/92
--- NOTE | 2019-01-26 03:08 | NUR ---
Patient c/o IV hurting. Refused new IV. Patient will d/c tomorrow.
--- NOTE | 2019-01-26 04:50 | NUR ---
Patient up ambulating to bathroom with walker.
--- NOTE | 2019-01-26 05:21 | Discharge Summary ---
CONSULTANTS: 1. Christofer dennison MD. 2. Wound Care. FINAL DIAGNOSES: 1. Right thumb infection and wound adhesion, status post right hhgyn-brv-qhhh amputation stump, has some debridement. 2. Peripheral vascular disease. 3. Noncompliance issue. SUMMARY: The patient is a 58 years old male with right nkhjo-gck-rrzw amputation and has stump wound dehiscence with necrotic tissue. The patient is status post debridement of the right fevho-dol-mzgw stump amputation. The patient has a dressing in place. Today, the patient adamantly that he need to go home because he is waiting for [employer] check to deliver to his house tomorrow and he would not stay in the hospital. If not discharged, the patient will sign out against medical advice. Of note, the patient will need prescription for the wound infection. He already has arrangement for long-term skilled facility for wound VAC and wound care. The patient had been given all instructions by human services case manager. I also spoke with his nurse, Dottie and she is giving him all the dressing and material for the patient to care for his wound at home and all education was also given as well. At this time because of his adamant of going out of the hospital, going home because of his personal tasks, the patient will be discharged so that we can give him description and also give him material as well as instruction for the patient to follow up with the skilled facility for wound care and wound VAC placement. He will go home with 2 weeks of Bactrim DS 1 tablet twice a day and doxycycline monohydrate 100 mg twice a day along with Tylenol No. 3 as needed for pain. The patient is stable, discharged today, but is more importantly the patient need to go to the facility of his arrangement. It is supposedly [facility]. The patient will go there for skilled care. MD SHANIQUE Delacruz/BRIEN /[id number]
[2019-01-26] MEDS: VANCOMYCIN 1GM/NS 250 ML 250 ML IV SCH (06:00)
[2019-01-26] MEDS: PIPER-TAZ 3.375 GM 50 ML IV SCH ×2 (06:00)
[2019-01-26 06:19] VITALS: BP 168/77
[2019-01-26 07:47] VITALS: BP 147/86
--- NOTE | 2019-01-26 10:00 | NUR ---
GAVE PT PATRICIA, GOT SIGNATURES AND FILED GREEN SHEET IN PACU FOR PROCESSING.
--- NOTE | 2019-01-26 10:15 | NUR ---
PT INSTRUCTED TO REPORT TO [facility] WITHIN 2 Dys to recieve antibiotics,acknowledge understanding
--- NOTE | 2019-01-26 10:15 | NUR ---
PT DISCHRGED HOME IV DC WITHOUT REDNESS OR SWELLLING,WALKER WS GIVEN TO PT,I CALL TO TRANSPORT PT HOME.
== END 2019-01-26 10:14 | disposition home or self-care (01) | DRG 464 ==
LOC: ER 15:20 → ERHOLD 19:05 → IMCU 20:46 → OBSVTOIN 01-22 15:13 → MED/SURG3 01-22 17:47
PROVIDERS: ADMIT Internal Medicine; ATTEND Internal Medicine
PROC: 0JBL0ZZ Excision of Right Upper Leg Subcutaneous Tissue and Fascia, Open Approach (ICD-10-PCS; principal; 2019-01-22 11:00)
DX: T87.43 Infection of amputation stump, right lower extremity (principal); L03.115 Cellulitis of right lower limb; T87.81 Dehiscence of amputation stump; Z86.718 Personal history of other venous thrombosis and embolism; Z90.49 Acquired absence of other specified parts of digestive tract; F17.210 Nicotine dependence, cigarettes, uncomplicated; Z72.89 Other problems related to lifestyle; Z82.49 Family history of ischemic heart disease and other diseases of the circulatory system; J44.9 Chronic obstructive pulmonary disease, unspecified; Z91.19 Patient's noncompliance with other medical treatment and regimen; I73.9 Peripheral vascular disease, unspecified
CPT/HCPCS: 36415; 80048; 80053; 80202; 80307; 80320; 81001; 83605; 83735; 85025; 85610; 85730; 87040; 87071; 87086; 87186; 87205; 97139; 99284; G0378; J1100; J1885; J2001; J2250; J2270; J2405; J2543; J3370; J7050

== ENCOUNTER 2019-06-27 15:47 | Emergency (ER) | payer MEDICARE ==
[~2019-06-27] VITALS: Ht 373.4 cm; Wt 86.2 kg
[~2019-06-27 15:47] MED LIST: BACTRIM DS TAB1 EACH PO; DOXYCYCLINE HY100 MG PO; TYLENOL WITH C1 EACH PO
[2019-06-27 17:00] VITALS: BP 142/90
== END 2019-06-27 17:36 | disposition home or self-care (01) ==
LOC: ER 15:47
DX: G89.29 Other chronic pain (principal); Z89.611 Acquired absence of right leg above knee; Z86.718 Personal history of other venous thrombosis and embolism
CPT/HCPCS: 99282